=== PATIENT | female | born 1955 | race Caucasian/White ===

== ENCOUNTER → 2017-10-04 00:54 | Outpatient (CLI) | payer MEDICAID, SELFPAY ==
--- NOTE | 2017-10-04 11:37 | DI.RPTCT_ITS ---
SYMPTOM/DIAGNOSIS: OVARIAN CA, ? TREATMENT RESPONSE C56.9 CHEST, ABDOMEN AND PELVIS CT: 10/04 CT examination of the chest, abdomen and pelvis was performed with a bolus infusion of 100 cc Omnipaque 350 and ingestion of dilute Barium. The patient reportedly has a history of ovarian carcinoma. Note is made of an indwelling right subclavian catheter. There is an apparent lower cervical effusion. Left shoulder prosthesis noted. Lungs are clear. Tracheal bronchial tree appear intact. No pleural effusion seen. No mediastinal or hilar adenopathy. A couple nodes are noted just above the diaphragm in the epicardial fat on the left measuring about 1.5 cm in diameter and decreased in size in comparison with the previous examination of 12/27/16 at which time the largest node measured about 25 mm in greatest diameter. The previous examination showed marked abdominal ascites which has essentially resolved. Very prominent omental caking was also noted on the previous examination markedly reduced on the current study with no clear cut omental masses identified. No gross retroperitoneal or mesenteric adenopathy seen. No definite pelvic or inguinal adenopathy seen. No evidence of bowel obstruction or bowel wall mass. The liver and spleen are unremarkable in appearance except for central right hepatic lobe, low attenuation lesion probably representing small hematic hemangioma or cyst. Gallbladder and biliary ducts are CT normal. Pancreas is unremarkable. Abdominal aorta is of normal diameter and no major vascular abnormality seen. No significant abdominal wall hernia seen. No gross evidence of bony metastatic disease involving the regions surveyed on this CT of the chest, abdomen and pelvis. CONCLUSION: 1. Marked interval decrease in abdominal pelvic ascites and presumed omental caking from ovarian carcinoma with little if any visible omental abnormalities noted at this time. 2. Enlarged lymph node noted in epicardial fat, supradiaphragmatic on the left anteriorly have decreased in size in comparison with the previous examination, the largest decreasing in size from about 25 mm in diameter to 15 mm in diameter. 3. No evidence of new metastatic disease.
[2017-10-04] MEDS: Omnipaque 350 MG/ML 100 ML BTL IJ (11:48)
[2017-10-04] MEDS: Omnipaque 350 MG/ML 50 ML BTL PO (11:49)
[2017-10-04] MEDS: Breeza Beverage 473 ML BTL PO ×2 (11:49→11:50)
== END ==
PROVIDERS: PCP Family Medicine; Visit Provider Obstetrics & Gynecology Gynecologic Oncology
DX: C56.9 Malignant neoplasm of unspecified ovary (principal); R59.0 Localized enlarged lymph nodes
CPT/HCPCS: 74177; 71260; 82565; J3490; Q9967

== ENCOUNTER → 2017-10-20 11:38 | Outpatient (RCR) | payer MEDICAID, SELFPAY ==
[2017-10-04] MEDS: Normal Saline Flush 10 ML SYR IVP (08:15)
[2017-10-04] MEDS: Heparin 500 UNITS/5 ML SYRINGE IV (08:15)
[2017-10-04 09:12] LABS: CREATININE 1.16 mg/dL (0.55-1.02); Estimated GFR 47.34 (mL/min/1.73m2)
[2017-10-20] MEDS: Heparin 500 UNITS/5 ML SYRINGE IV (11:50)
[2017-10-20] MEDS: Normal Saline Flush 10 ML SYR IVP (11:50)
[2017-10-20 12:02] LABS: Absolute Basophil Count 0.09 k/cumm (0.0-0.2); Absolute Lymphocyte Count 0.75 k/cumm (1.2-3.4); Absolute Monocyte Count 0.47 k/cumm (0.11-0.7); Absolute Neutrophil Count 1.54 k/cumm (1.2-6.7); Basophils % 2.8; Eosinophils % 12.3; HCT 31.8 % (36.0-46.0); HGB 10.5 g/dL (12.0-15.5); Lymphocytes % 23.1; Mean Corpuscular Hemoglobin 31.2 pg (27.0-33.0); Mean Corpuscular Volume 94.4 fL (80-95); Mean Platelet Volume 8.2 fL (8.0-11.0); Monocytes % 14.5; Neutrophils % 47.3; Platelet Count 317 x1000/uL (130-400); RBC 3.37 m/cumm (4.00-5.20); RBC Distribution Width 16.8 % (11.7-14.6); White Blood Cell Count 3.25 k/cumm (4.4-10.8)
[2017-10-20 12:19] LABS: ALT 33 U/L (12-78); AST 26 U/L (15-37); Albumin 3.7 g/dL (3.4-5.0); Alkaline Phosphatase 115 U/L (46-116); Anion Gap 9.1 mmol/L (3-11); BUN 29 mg/dL (7-18); Bilirubin, Total 0.5 mg/dL (0.2-1.0); CO2 27.9 mmol/L (21.0-32.0); CREATININE 1.61 mg/dL (0.55-1.02); Calcium 9.3 mg/dL (8.5-10.1); Chloride 101 mmol/L (98-107); Estimated GFR 32.43 (mL/min/1.73m2); Glucose 137 mg/dL (70-100); Potassium 4.1 mmol/L (3.5-5.1); Sodium 138 mmol/L (136-145); Total Protein 7.6 g/dL (6.4-8.2)
== END ==
LOC: INF 10-04 01:50
PROVIDERS: Obstetrics & Gynecology Gynecologic Oncology; PCP Family Medicine; Visit Provider Internal Medicine Medical Oncology
DX: Z45.2 Encounter for adjustment and management of vascular access device (principal); C56.9 Malignant neoplasm of unspecified ovary; R59.0 Localized enlarged lymph nodes; E11.65 Type 2 diabetes mellitus with hyperglycemia
CPT/HCPCS: 36591; 80053; 82565; 85025

== ENCOUNTER 2017-11-14 01:37 | Outpatient (RCR) | payer MEDICAID, SELFPAY ==
[2017-10-27] MEDS: Heparin 500 UNITS/5 ML SYRINGE IV (09:55)
[2017-10-27] MEDS: Normal Saline Flush 10 ML SYR IVP (09:55)
[2017-10-27 10:26] LABS: Absolute Basophil Count 0.07 k/cumm (0.0-0.2); Absolute Eosinophil Count 0.38 k/cumm (0.0-0.7); Absolute Lymphocyte Count 0.81 k/cumm (1.2-3.4); Absolute Monocyte Count 0.39 k/cumm (0.11-0.7); Absolute Neutrophil Count 2.28 k/cumm (1.2-6.7); Basophils % 1.8; Eosinophils % 9.7; HCT 30.4 % (36.0-46.0); HGB 9.9 g/dL (12.0-15.5); Lymphocytes % 20.6; Mean Corp. HGB Concentration 32.6 g/dL (32.0-36.0); Mean Corpuscular Hemoglobin 31.3 pg (27.0-33.0); Mean Corpuscular Volume 96.2 fL (80-95); Mean Platelet Volume 8.6 fL (8.0-11.0); Monocytes % 9.9; Platelet Count 244 x1000/uL (130-400); RBC 3.16 m/cumm (4.00-5.20); RBC Distribution Width 16.1 % (11.7-14.6); White Blood Cell Count 3.93 k/cumm (4.4-10.8)
[2017-10-27 10:48] LABS: ALT 37 U/L (12-78); AST 29 U/L (15-37); Albumin 3.6 g/dL (3.4-5.0); Alkaline Phosphatase 126 U/L (46-116); Anion Gap 8.3 mmol/L (3-11); BUN 31 mg/dL (7-18); Bilirubin, Total 0.4 mg/dL (0.2-1.0); CO2 27.7 mmol/L (21.0-32.0); CREATININE 1.56 mg/dL (0.55-1.02); Calcium 9.3 mg/dL (8.5-10.1); Chloride 101 mmol/L (98-107); Estimated GFR 33.63 (mL/min/1.73m2); Glucose 144 mg/dL (70-100); Potassium 4.1 mmol/L (3.5-5.1); Sodium 137 mmol/L (136-145); Total Protein 7.8 g/dL (6.4-8.2)
[2017-11-07] MEDS: Normal Saline Flush 10 ML SYR IVP (10:35)
[2017-11-07] MEDS: Heparin 500 UNITS/5 ML SYRINGE IV (10:35)
[2017-11-07 10:51] LABS: Abs Immature Grans 0.01 k/cumm (0.0-0.09); Absolute Basophil Count 0.05 k/cumm (0.0-0.2); Absolute Lymphocyte Count 0.75 k/cumm (1.2-3.4); Absolute Monocyte Count 0.42 k/cumm (0.11-0.7); Absolute Neutrophil Count 1.85 k/cumm (1.2-6.7); Basophils % 1.5; Eosinophils % 8.9; HCT 31.3 % (36.0-46.0); HGB 10.7 g/dL (12.0-15.5); Immature Grans % 0.3; Lymphocytes % 22.2; Mean Corp. HGB Concentration 34.2 g/dL (32.0-36.0); Mean Corpuscular Volume 96.6 fL (80-95); Mean Platelet Volume 8.8 fL (8.0-11.0); Monocytes % 12.4; Neutrophils % 54.7; Platelet Count 188 x1000/uL (130-400); RBC 3.24 m/cumm (4.00-5.20); RBC Distribution Width 15.4 % (11.7-14.6); White Blood Cell Count 3.38 k/cumm (4.4-10.8)
[2017-11-07 11:15] LABS: ALT 32 U/L (12-78); AST 26 U/L (15-37); Albumin 3.9 g/dL (3.4-5.0); Alkaline Phosphatase 128 U/L (46-116); Anion Gap 11.1 mmol/L (3-11); BUN 27 mg/dL (7-18); Bilirubin, Total 0.3 mg/dL (0.2-1.0); CO2 26.9 mmol/L (21.0-32.0); CREATININE 1.56 mg/dL (0.55-1.02); Calcium 9.2 mg/dL (8.5-10.1); Chloride 101 mmol/L (98-107); Estimated GFR 33.63 (mL/min/1.73m2); Glucose 144 mg/dL (70-100); Potassium 4.6 mmol/L (3.5-5.1); Sodium 139 mmol/L (136-145)
[2017-11-08 10:08] LABS: CA 125 10 U/mL (0-30)
[2017-11-14] MEDS: Normal Saline Flush 10 ML SYR IVP (10:15)
[2017-11-14] MEDS: Heparin 500 UNITS/5 ML SYRINGE IV (10:15)
[2017-11-14 10:44] LABS: Absolute Basophil Count 0.07 k/cumm (0.0-0.2); Absolute Eosinophil Count 0.28 k/cumm (0.0-0.7); Absolute Monocyte Count 0.51 k/cumm (0.11-0.7); Absolute Neutrophil Count 1.73 k/cumm (1.2-6.7); Basophils % 2.1; Eosinophils % 8.3; HCT 31.6 % (36.0-46.0); HGB 10.8 g/dL (12.0-15.5); Lymphocytes % 23.6; Mean Corp. HGB Concentration 34.2 g/dL (32.0-36.0); Mean Corpuscular Hemoglobin 33.4 pg (27.0-33.0); Mean Corpuscular Volume 97.8 fL (80-95); Mean Platelet Volume 8.3 fL (8.0-11.0); Platelet Count 219 x1000/uL (130-400); RBC 3.23 m/cumm (4.00-5.20); RBC Distribution Width 14.9 % (11.7-14.6); White Blood Cell Count 3.39 k/cumm (4.4-10.8)
[2017-11-14 11:51] LABS: Hemoglobin A1C 6.5 % (4.5-6.2)
== END 2017-11-19 23:59 | disposition home or self-care (01) ==
LOC: INF 01:37
PROVIDERS: Obstetrics & Gynecology Gynecologic Oncology; PCP Family Medicine; Visit Provider Internal Medicine Medical Oncology
DX: C56.9 Malignant neoplasm of unspecified ovary (principal); E11.65 Type 2 diabetes mellitus with hyperglycemia; Z45.2 Encounter for adjustment and management of vascular access device
CPT/HCPCS: 36591; 80053; 86304; 83036; 85025

== ENCOUNTER 2017-12-19 14:30 | Outpatient (RCR) | payer MEDICAID, SELFPAY ==
[2017-12-19] MEDS: Normal Saline Flush 10 ML SYR IVP (14:40)
[2017-12-19] MEDS: Heparin 500 UNITS/5 ML SYRINGE IV (14:50)
[2017-12-19 14:57] LABS: Absolute Basophil Count 0.08 k/cumm (0.0-0.2); Absolute Eosinophil Count 0.11 k/cumm (0.0-0.7); Absolute Lymphocyte Count 1.14 k/cumm (1.2-3.4); Absolute Monocyte Count 0.31 k/cumm (0.11-0.7); Absolute Neutrophil Count 1.21 k/cumm (1.2-6.7); Basophils % 2.8; Eosinophils % 3.9; HCT 25.2 % (36.0-46.0); HGB 8.5 g/dL (12.0-15.5); Mean Corp. HGB Concentration 33.7 g/dL (32.0-36.0); Mean Corpuscular Hemoglobin 32.7 pg (27.0-33.0); Mean Corpuscular Volume 96.9 fL (80-95); Mean Platelet Volume 9.7 fL (8.0-11.0); Monocytes % 10.9; Neutrophils % 42.4; Platelet Count 103 x1000/uL (130-400); RBC Distribution Width 13.6 % (11.7-14.6); White Blood Cell Count 2.85 k/cumm (4.4-10.8)
[2017-12-19 15:06] LABS: Diff Comment Diff Reviewed; Polychromasia Present
== END 2017-12-20 23:59 | disposition home or self-care (01) ==
LOC: INF 14:30
PROVIDERS: PCP Family Medicine; Visit Provider Obstetrics & Gynecology Gynecologic Oncology
DX: C56.9 Malignant neoplasm of unspecified ovary (principal); Z45.2 Encounter for adjustment and management of vascular access device
CPT/HCPCS: 36591; 85025

== ENCOUNTER 2018-01-15 13:35 | Outpatient (RCR) | payer MEDICAID, SELFPAY ==
[2017-12-26] MEDS: Normal Saline Flush 10 ML SYR IVP (12:20)
[2017-12-26] MEDS: Heparin 500 UNITS/5 ML SYRINGE IV (12:20)
[2017-12-26 12:56] LABS: Absolute Basophil Count 0.04 k/cumm (0.0-0.2); Absolute Eosinophil Count 0.24 k/cumm (0.0-0.7); Absolute Lymphocyte Count 0.78 k/cumm (1.2-3.4); Absolute Monocyte Count 0.43 k/cumm (0.11-0.7); Absolute Neutrophil Count 1.09 k/cumm (1.2-6.7); Basophils % 1.6; Eosinophils % 9.3; HCT 22.7 % (36.0-46.0); HGB 7.8 g/dL (12.0-15.5); Lymphocytes % 30.2; Mean Corp. HGB Concentration 34.4 g/dL (32.0-36.0); Mean Corpuscular Volume 101.8 fL (80-95); Mean Platelet Volume 8.7 fL (8.0-11.0); Monocytes % 16.7; RBC 2.23 m/cumm (4.00-5.20); RBC Distribution Width 15.7 % (11.7-14.6); White Blood Cell Count 2.58 k/cumm (4.4-10.8)
[2017-12-26 13:15] LABS: Anisocytosis 1+; Basophilic Stippling Present; Diff Comment Agrees w/ Instrument; Platelet Count 260 x1000/uL (130-400); Polychromasia Present
[2017-12-26 13:16] LABS: Howell-Jolly Bodies Present; Neutrophils % 42.2
[2018-01-04] MEDS: Heparin 500 UNITS/5 ML SYRINGE IV (12:10)
[2018-01-04] MEDS: Normal Saline Flush 10 ML SYR IVP (12:10)
[2018-01-04 12:24] LABS: Abs Immature Grans 0.01 k/cumm (0.0-0.09); Absolute Basophil Count 0.07 k/cumm (0.0-0.2); Absolute Eosinophil Count 0.18 k/cumm (0.0-0.7); Absolute Lymphocyte Count 0.95 k/cumm (1.2-3.4); Absolute Neutrophil Count 1.54 k/cumm (1.2-6.7); Basophils % 2.2; Eosinophils % 5.5; HCT 29.8 % (36.0-46.0); Immature Grans % 0.3; Lymphocytes % 29.2; Mean Corp. HGB Concentration 33.6 g/dL (32.0-36.0); Mean Corpuscular Volume 101.4 fL (80-95); Mean Platelet Volume 8.5 fL (8.0-11.0); Monocytes % 15.4; Neutrophils % 47.4; Platelet Count 232 x1000/uL (130-400); RBC 2.94 m/cumm (4.00-5.20); RBC Distribution Width 18.8 % (11.7-14.6); White Blood Cell Count 3.25 k/cumm (4.4-10.8)
[2018-01-09] MEDS: Normal Saline Flush 10 ML SYR IVP (12:20)
[2018-01-09] MEDS: Heparin 500 UNITS/5 ML SYRINGE IV (12:21)
[2018-01-09 12:33] LABS: Absolute Basophil Count 0.05 k/cumm (0.0-0.2); Absolute Eosinophil Count 0.18 k/cumm (0.0-0.7); Absolute Lymphocyte Count 0.97 k/cumm (1.2-3.4); Absolute Neutrophil Count 1.92 k/cumm (1.2-6.7); Basophils % 1.3; Eosinophils % 4.8; HCT 31.8 % (36.0-46.0); HGB 10.8 g/dL (12.0-15.5); Lymphocytes % 26.1; Mean Corpuscular Hemoglobin 34.7 pg (27.0-33.0); Mean Corpuscular Volume 102.3 fL (80-95); Mean Platelet Volume 8.5 fL (8.0-11.0); Monocytes % 16.1; Neutrophils % 51.7; Platelet Count 265 x1000/uL (130-400); RBC 3.11 m/cumm (4.00-5.20); RBC Distribution Width 18.3 % (11.7-14.6); White Blood Cell Count 3.72 k/cumm (4.4-10.8)
[2018-01-15] MEDS: Heparin 500 UNITS/5 ML SYRINGE IV (15:05)
[2018-01-15] MEDS: Normal Saline Flush 10 ML SYR IVP (15:05)
[2018-01-15 15:46] LABS: Absolute Basophil Count 0.05 k/cumm (0.0-0.2); Absolute Eosinophil Count 0.27 k/cumm (0.0-0.7); Absolute Monocyte Count 0.61 k/cumm (0.11-0.7); Absolute Neutrophil Count 1.79 k/cumm (1.2-6.7); Basophils % 1.3; Eosinophils % 7.1; HCT 33.1 % (36.0-46.0); HGB 11.1 g/dL (12.0-15.5); Lymphocytes % 28.8; Mean Corp. HGB Concentration 33.5 g/dL (32.0-36.0); Mean Corpuscular Hemoglobin 34.4 pg (27.0-33.0); Mean Corpuscular Volume 102.5 fL (80-95); Mean Platelet Volume 8.7 fL (8.0-11.0); Neutrophils % 46.8; Platelet Count 366 x1000/uL (130-400); RBC 3.23 m/cumm (4.00-5.20); RBC Distribution Width 17.3 % (11.7-14.6); White Blood Cell Count 3.82 k/cumm (4.4-10.8)
== END 2018-01-19 23:59 | disposition home or self-care (01) ==
LOC: INF 13:35
PROVIDERS: PCP Family Medicine; Visit Provider Obstetrics & Gynecology Gynecologic Oncology
DX: C56.9 Malignant neoplasm of unspecified ovary (principal); Z45.2 Encounter for adjustment and management of vascular access device
CPT/HCPCS: 36591; 85025

== ENCOUNTER 2018-02-19 01:20 | Outpatient (RCR) | payer MEDICAID, SELFPAY ==
[2018-01-29] MEDS: Heparin 500 UNITS/5 ML SYRINGE IV (09:05)
[2018-01-29] MEDS: Normal Saline Flush 10 ML SYR IVP (09:05)
[2018-01-29 09:50] LABS: Abs Immature Grans 0.01 k/cumm (0.0-0.09); Absolute Basophil Count 0.06 k/cumm (0.0-0.2); Absolute Lymphocyte Count 1.13 k/cumm (1.2-3.4); Absolute Monocyte Count 0.56 k/cumm (0.11-0.7); Basophils % 1.4; Eosinophils % 6.9; HCT 32.3 % (36.0-46.0); HGB 10.8 g/dL (12.0-15.5); Immature Grans % 0.2; Lymphocytes % 25.9; Mean Corp. HGB Concentration 33.4 g/dL (32.0-36.0); Mean Corpuscular Hemoglobin 34.6 pg (27.0-33.0); Mean Corpuscular Volume 103.5 fL (80-95); Mean Platelet Volume 8.8 fL (8.0-11.0); Monocytes % 12.8; Neutrophils % 52.8; Platelet Count 231 x1000/uL (130-400); RBC 3.12 m/cumm (4.00-5.20); White Blood Cell Count 4.36 k/cumm (4.4-10.8)
[2018-01-29 10:01] LABS: ALT 30 U/L (12-78); AST 23 U/L (15-37); Albumin 3.9 g/dL (3.4-5.0); Alkaline Phosphatase 83 U/L (46-116); Anion Gap 10.6 mmol/L (3-11); BUN 39 mg/dL (7-18); Bilirubin, Total 0.5 mg/dL (0.2-1.0); CO2 28.4 mmol/L (21.0-32.0); CREATININE 1.51 mg/dL (0.55-1.02); Calcium 9.7 mg/dL (8.5-10.1); Chloride 100 mmol/L (98-107); Estimated GFR 34.92 (mL/min/1.73m2); Glucose 158 mg/dL (70-100); Potassium 4.4 mmol/L (3.5-5.1); Sodium 139 mmol/L (136-145); Total Protein 7.6 g/dL (6.4-8.2)
[2018-02-05] MEDS: Heparin 500 UNITS/5 ML SYRINGE IV (12:10)
[2018-02-05] MEDS: Normal Saline Flush 10 ML SYR IVP (12:10)
[2018-02-05 12:36] LABS: Abs Immature Grans 0.01 k/cumm (0.0-0.09); Absolute Basophil Count 0.03 k/cumm (0.0-0.2); Absolute Eosinophil Count 0.39 k/cumm (0.0-0.7); Absolute Lymphocyte Count 1.09 k/cumm (1.2-3.4); Basophils % 0.6; Eosinophils % 8.1; HCT 31.2 % (36.0-46.0); HGB 10.6 g/dL (12.0-15.5); Immature Grans % 0.2; Lymphocytes % 22.6; Mean Platelet Volume 8.6 fL (8.0-11.0); Monocytes % 12.4; Neutrophils % 56.1; Platelet Count 253 x1000/uL (130-400); RBC 3.03 m/cumm (4.00-5.20); RBC Distribution Width 15.2 % (11.7-14.6); White Blood Cell Count 4.82 k/cumm (4.4-10.8)
[2018-02-05 12:52] LABS: ALT 30 U/L (12-78); AST 21 U/L (15-37); Alkaline Phosphatase 75 U/L (46-116); Anion Gap 11.9 mmol/L (3-11); BUN 42 mg/dL (7-18); Bilirubin, Total 0.5 mg/dL (0.2-1.0); CO2 27.1 mmol/L (21.0-32.0); CREATININE 1.49 mg/dL (0.55-1.02); Calcium 9.9 mg/dL (8.5-10.1); Chloride 98 mmol/L (98-107); Estimated GFR 35.46 (mL/min/1.73m2); Glucose 166 mg/dL (70-100); Potassium 4.4 mmol/L (3.5-5.1); Sodium 137 mmol/L (136-145); Total Protein 7.7 g/dL (6.4-8.2)
[2018-02-12] MEDS: Heparin 500 UNITS/5 ML SYRINGE IV (13:30)
[2018-02-12] MEDS: Normal Saline Flush 10 ML SYR IVP (13:30)
[2018-02-12 13:33] LABS: Absolute Basophil Count 0.05 k/cumm (0.0-0.2); Absolute Eosinophil Count 0.27 k/cumm (0.0-0.7); Absolute Lymphocyte Count 0.97 k/cumm (1.2-3.4); Absolute Monocyte Count 0.49 k/cumm (0.11-0.7); Absolute Neutrophil Count 2.03 k/cumm (1.2-6.7); Basophils % 1.3; Eosinophils % 7.1; HCT 31.5 % (36.0-46.0); HGB 10.7 g/dL (12.0-15.5); Lymphocytes % 25.5; Mean Corpuscular Hemoglobin 35.1 pg (27.0-33.0); Mean Corpuscular Volume 103.3 fL (80-95); Mean Platelet Volume 8.4 fL (8.0-11.0); Monocytes % 12.9; Neutrophils % 53.2; Platelet Count 302 x1000/uL (130-400); RBC 3.05 m/cumm (4.00-5.20); RBC Distribution Width 14.3 % (11.7-14.6); White Blood Cell Count 3.81 k/cumm (4.4-10.8)
[2018-02-12 13:52] LABS: ALT 30 U/L (12-78); AST 24 U/L (15-37); Albumin 3.9 g/dL (3.4-5.0); Alkaline Phosphatase 78 U/L (46-116); Anion Gap 9.5 mmol/L (3-11); BUN 30 mg/dL (7-18); Bilirubin, Total 0.5 mg/dL (0.2-1.0); CO2 29.5 mmol/L (21.0-32.0); CREATININE 1.77 mg/dL (0.55-1.02); Calcium 9.8 mg/dL (8.5-10.1); Chloride 100 mmol/L (98-107); Estimated GFR 29.07 (mL/min/1.73m2); Glucose 182 mg/dL (70-100); Potassium 4.8 mmol/L (3.5-5.1); Sodium 139 mmol/L (136-145); Total Protein 7.8 g/dL (6.4-8.2)
[2018-02-19] MEDS: Normal Saline Flush 10 ML SYR IVP (12:30)
[2018-02-19 12:49] LABS: Abs Immature Grans 0.01 k/cumm (0.0-0.09); Absolute Basophil Count 0.05 k/cumm (0.0-0.2); Absolute Eosinophil Count 0.18 k/cumm (0.0-0.7); Absolute Lymphocyte Count 0.84 k/cumm (1.2-3.4); Absolute Monocyte Count 0.59 k/cumm (0.11-0.7); Absolute Neutrophil Count 2.71 k/cumm (1.2-6.7); Basophils % 1.1; Eosinophils % 4.1; HCT 33.4 % (36.0-46.0); HGB 11.4 g/dL (12.0-15.5); Immature Grans % 0.2; Lymphocytes % 19.2; Mean Corp. HGB Concentration 34.1 g/dL (32.0-36.0); Mean Corpuscular Hemoglobin 35.4 pg (27.0-33.0); Mean Corpuscular Volume 103.7 fL (80-95); Mean Platelet Volume 8.4 fL (8.0-11.0); Monocytes % 13.5; Neutrophils % 61.9; Platelet Count 307 x1000/uL (130-400); RBC 3.22 m/cumm (4.00-5.20); RBC Distribution Width 13.8 % (11.7-14.6); White Blood Cell Count 4.38 k/cumm (4.4-10.8)
[2018-02-19 13:08] LABS: ALT 38 U/L (12-78); AST 26 U/L (15-37); Albumin 4.1 g/dL (3.4-5.0); Alkaline Phosphatase 84 U/L (46-116); Anion Gap 9.8 mmol/L (3-11); BUN 32 mg/dL (7-18); Bilirubin, Total 0.5 mg/dL (0.2-1.0); CO2 31.2 mmol/L (21.0-32.0); CREATININE 1.69 mg/dL (0.55-1.02); Calcium 10.2 mg/dL (8.5-10.1); Chloride 97 mmol/L (98-107); Estimated GFR 30.66 (mL/min/1.73m2); Glucose 154 mg/dL (70-100); Potassium 4.1 mmol/L (3.5-5.1); Sodium 138 mmol/L (136-145); Total Protein 8.2 g/dL (6.4-8.2)
== END 2018-02-19 23:59 | disposition home or self-care (01) ==
LOC: INF 01:20
PROVIDERS: PCP Family Medicine; Visit Provider Obstetrics & Gynecology Gynecologic Oncology
DX: C56.9 Malignant neoplasm of unspecified ovary (principal); Z45.2 Encounter for adjustment and management of vascular access device
CPT/HCPCS: 36591; 80053; 85025

== ENCOUNTER 2018-03-13 02:07 | Outpatient (RCR) | payer MEDICAID, SELFPAY ==
[2018-03-05] MEDS: Normal Saline Flush 10 ML SYR IVP (15:25)
[2018-03-05] MEDS: Heparin 500 UNITS/5 ML SYRINGE IV (15:26)
[2018-03-05 15:40] LABS: Absolute Basophil Count 0.03 k/cumm (0.0-0.2); Absolute Eosinophil Count 0.19 k/cumm (0.0-0.7); Absolute Lymphocyte Count 1.19 k/cumm (1.2-3.4); Absolute Monocyte Count 0.46 k/cumm (0.11-0.7); Absolute Neutrophil Count 2.15 k/cumm (1.2-6.7); Basophils % 0.7; Eosinophils % 4.7; HCT 32.1 % (36.0-46.0); HGB 11.1 g/dL (12.0-15.5); Lymphocytes % 29.6; Mean Corp. HGB Concentration 34.6 g/dL (32.0-36.0); Mean Corpuscular Hemoglobin 35.8 pg (27.0-33.0); Mean Corpuscular Volume 103.5 fL (80-95); Mean Platelet Volume 8.9 fL (8.0-11.0); Monocytes % 11.4; Neutrophils % 53.6; RBC Distribution Width 13.5 % (11.7-14.6); White Blood Cell Count 4.02 k/cumm (4.4-10.8)
[2018-03-05 16:02] LABS: Platelet Count 209 x1000/uL (130-400)
[2018-03-05 16:19] LABS: ALT 31 U/L (12-78); AST 25 U/L (15-37); Albumin 3.9 g/dL (3.4-5.0); Alkaline Phosphatase 93 U/L (46-116); Anion Gap 8.3 mmol/L (3-11); BUN 30 mg/dL (7-18); Bilirubin, Total 0.3 mg/dL (0.2-1.0); CO2 28.7 mmol/L (21.0-32.0); CREATININE 1.92 mg/dL (0.55-1.02); Calcium 9.5 mg/dL (8.5-10.1); Chloride 96 mmol/L (98-107); Estimated GFR 26.46 (mL/min/1.73m2); Glucose 186 mg/dL (70-100); Sodium 133 mmol/L (136-145); Total Protein 7.9 g/dL (6.4-8.2)
[2018-03-13] MEDS: Heparin 500 UNITS/5 ML SYRINGE IV (14:21)
[2018-03-13] MEDS: Normal Saline Flush 10 ML SYR IVP (14:21)
[2018-03-13 14:34] LABS: ALT 29 U/L (12-78); AST 25 U/L (15-37); Absolute Basophil Count 0.03 k/cumm (0.0-0.2); Absolute Eosinophil Count 0.17 k/cumm (0.0-0.7); Absolute Lymphocyte Count 1.09 k/cumm (1.2-3.4); Absolute Monocyte Count 0.32 k/cumm (0.11-0.7); Absolute Neutrophil Count 1.58 k/cumm (1.2-6.7); Alkaline Phosphatase 85 U/L (46-116); Anion Gap 9.2 mmol/L (3-11); BUN 34 mg/dL (7-18); Basophils % 0.9; Bilirubin, Total 0.3 mg/dL (0.2-1.0); CO2 28.8 mmol/L (21.0-32.0); CREATININE 2.22 mg/dL (0.55-1.02); Calcium 9.7 mg/dL (8.5-10.1); Chloride 98 mmol/L (98-107); Eosinophils % 5.3; Estimated GFR 22.38 (mL/min/1.73m2); Glucose 156 mg/dL (70-100); HCT 30.9 % (36.0-46.0); HGB 10.6 g/dL (12.0-15.5); Lymphocytes % 34.2; Mean Corp. HGB Concentration 34.3 g/dL (32.0-36.0); Mean Corpuscular Hemoglobin 34.8 pg (27.0-33.0); Mean Corpuscular Volume 101.3 fL (80-95); Mean Platelet Volume 9.1 fL (8.0-11.0); Neutrophils % 49.6; Platelet Count 117 x1000/uL (130-400); Potassium 4.5 mmol/L (3.5-5.1); RBC 3.05 m/cumm (4.00-5.20); Sodium 136 mmol/L (136-145); Total Protein 7.7 g/dL (6.4-8.2); White Blood Cell Count 3.19 k/cumm (4.4-10.8)
== END 2018-03-22 23:59 | disposition home or self-care (01) ==
LOC: INF 02:07
PROVIDERS: PCP Family Medicine; Visit Provider Obstetrics & Gynecology Gynecologic Oncology
DX: C56.9 Malignant neoplasm of unspecified ovary (principal); Z45.2 Encounter for adjustment and management of vascular access device
CPT/HCPCS: 36591; 80053; 85025

== ENCOUNTER 2018-04-16 00:35 | Outpatient (CLI) | payer MEDICAID, SELFPAY ==
--- NOTE | 2018-04-16 13:52 | DI.MRI_ITS ---
SYMPTOMS/DIAGNOSIS: VISUAL FIELD DEFECT, H53.40 MRI OF THE ORBITS: T2 sagittal and T1 axial sequences were performed of the entire brain. T1 axial and coronal and fat-suppressed T2 axial and coronal sequences were performed through the orbits. The usual gadolinium enhanced sequences could not be performed secondary to renal insufficiency. The globes, optic nerves and extraocular muscles appear symmetric. No abnormality is seen in the intraconal fat. The visualized portions of the brain are unremarkable. There is no evidence of a pituitary mass or pituitary enlargement. The vascular flow voids appear intact. The ventricles are normal in size. The sinuses and mastoid air cells appear clear. IMPRESSION: Limited exam. No orbital abnormality is seen.
== END 2018-04-16 00:55 ==
PROVIDERS: PCP Family Medicine; Visit Provider Family Medicine
DX: H53.40 Unspecified visual field defects (principal)
CPT/HCPCS: 70540; 70551

== ENCOUNTER 2018-04-17 14:01 | Outpatient (REF) | payer MEDICAID, SELFPAY ==
[2018-04-17 14:43] LABS: Hemoglobin A1C 9.7 % (4.5-6.2)
[2018-04-17 14:49] LABS: ALT 25 U/L (12-78); AST 23 U/L (15-37); Albumin 4.3 g/dL (3.4-5.0); Alkaline Phosphatase 89 U/L (46-116); Anion Gap 12.4 mmol/L (3-11); BUN 27 mg/dL (7-18); Bilirubin, Total 0.4 mg/dL (0.2-1.0); CO2 25.6 mmol/L (21.0-32.0); CREATININE 1.75 mg/dL (0.55-1.02); Calcium 9.7 mg/dL (8.5-10.1); Chloride 97 mmol/L (98-107); Estimated GFR 29.45 (mL/min/1.73m2); Glucose 128 mg/dL (70-100); Potassium 4.1 mmol/L (3.5-5.1); Sodium 135 mmol/L (136-145); TSH (W/Ref FT4) 5.07 uIU/mL (0.358-3.74); Total Protein 8.2 g/dL (6.4-8.2)
[2018-04-17 15:11] LABS: FREE T4 1.04 ng/dL (0.76-1.46)
== END 2018-04-17 14:21 ==
LOC: LBN 14:01
PROVIDERS: PCP Family Medicine; Visit Provider Family Medicine
DX: E11.65 Type 2 diabetes mellitus with hyperglycemia (principal); R06.02 Shortness of breath; N28.9 Disorder of kidney and ureter, unspecified; G47.30 Sleep apnea, unspecified; R41.3 Other amnesia
CPT/HCPCS: 80053; 83036; 84439; 84443

== ENCOUNTER 2018-04-17 14:12 | Outpatient (RCR) | payer MEDICAID, SELFPAY | END 2018-04-19 23:59 | disposition home or self-care (01) | LOC: INF 14:12 | PROVIDERS: PCP Family Medicine; Visit Provider Obstetrics & Gynecology Gynecologic Oncology | DX: E11.65 Type 2 diabetes mellitus with hyperglycemia (principal); Z45.2 Encounter for adjustment and management of vascular access device | CPT/HCPCS: 36591 ==

== ENCOUNTER 2018-04-25 11:12 | Emergency (ER) | payer MEDICAID, SELFPAY ==
[2018-04-25] VITALS (46 sets, daily range): BP systolic 111–241; BP diastolic 53–198; PULSE 88–124; RESP 11–31; TEMP 36.8–37.3; O2SAT 96–100
--- NOTE | 2018-04-25 11:17 | ED.GENADUL_ITS ---
Discharge Plan Disposition Patient Disposition: HOME Condition: Stable Discharge Details Chief Complaint: SOB Clinical Impression: Anemia, SOB (shortness of breath), Thrombocytopenia Primary Care Provider: Angeli Paez ED Provider: Kirsty Kraus Home Meds and New Rx's Prescriptions: Continued omeprazole 20 mg capsule,delayed release(DR/EC) 20 mg PO DAILY Qty: 90 RF: 12 lancets 28 gauge misc 1 ea Miscellaneous TID Qty: 400 RF: 4 glucosamine-chondroitin 256-369-30-5 mg tablet 1 tab PO BID Qty: 180 RF: 12 duloxetine 60 mg capsule,delayed release(DR/EC) 60 mg PO DAILY Qty: 90 RF: 12 Blood Glucose Test strip 1 ea Miscellaneous TID Qty: 400 RF: 12 furosemide 20 mg tablet 20 mg PO BID RF: 0 acetaminophen [Tylenol Extra Strength] 500 mg tablet 1,000 mg PO TID PRNRF: 0 sennosides [Senokot] 8.6 mg tablet 8.6 mg PO BID PRNRF: 0 polyethylene glycol 3350 [Miralax] 17 gram/dose powder 17 gm PO DAILY PRNRF: 0 latanoprost 2.5 ML drops 1 drp Ophthalmic DAILY RF: 0 BD Autoshield Pen Needle 1 EACH needle 1 ndl Sub-Q DAILY Qty: 400 RF: 12 pen needle, diabetic [BD Ultra-Fine Orig Pen Needle] 1 EACH needle 1 ea Miscellaneous 4 times daily Qty: 360 RF: 12 Lantus Solostar U-100 Insulin 100 UNIT/1 ML insulin pen 15 unit SQ DAILY Qty: 2 RF: 12 amoxicillin 500 MG capsule 4 tab PO DIR Qty: 4 RF: 12 multivitamin 1 EACH capsule 1 ea PO DAILY Qty: 90 RF: 12 BD AutoShield Duo Pen Needle 1 EACH needle 1 ea Miscellaneous QID Qty: 400 RF: 12 loratadine 10 mg tablet 10 mg PO DAILY Qty: 90 RF: 12 spironolactone 25 mg tablet 25 mg PO BID Qty: 180 RF: 12 losartan [Cozaar] 50 mg Tablet 50 mg PO DAILY RF: 0 Discharge Instructions Instructions: Dyspnea (ED), Anemia (ED), Blood Transfusion (GEN) Additional Instructions: Please return immediately to the emergency department if you develop any new or worsening symptoms or if you become otherwise concerned. It is extremely important that you call tomorrow to make an appointment to be seen in follow-up as soon as possible by both her primary care doctor and also by her oncologist. Please do not take your oral chemotherapy medication until you have spoken with your oncologist tomorrow. Referrals: Angeli Paez MD, [place] [Primary Care Provider] - Discharge Data Discharge Date/Time-TO BE ENTERED AT DEPARTURE: 04/25/18 22:20 Medical Decision Making Jess Krishnamurthy is a 62 y/o woman with h/o ovarian cancer currently on p.o. chemotherapy who presented to the emergency department with 3 weeks of shortness of breath. On exam patient is well and nontoxic appearing with normal work of breathing and clear lungs while at rest. Somewhat dry mucous membranes. She did have some mild tachypnea when transferring to the bed that resolved rapidly with rest. Otherwise unremarkable exam. Concern for anemia versus PE versus pneumonia versus influenza versus less likely CHF, ACS. Exam/history is not consistent with acute aortic pathology, sepsis, other acute emergent life- threatening process. Plan for EKG, chest x-ray, screening labs, telemetry, IV, judicious IV fluid. Will monitor and reassess. Chest x-ray personally visualized and interpreted by me in conjunction with radiology: CHEST: Frontal and lateral views. Comparison CT scan is 12/27/16. The heart size and pulmonary vasculature are within normal limits. The lungs are free of infiltrates, effusions or pneumothoraces. There is an indwelling central venous catheter. The tip of the catheter is in good position in the superior vena cava. Note is made of a reversed left shoulder replacement. Marked degenerative changes are seen in the right shoulder. Degenerative changes are seen in the spine. IMPRESSION: No acute pulmonary process. EKG interpreted by me, shows sinus rhythm at 92, normal axis, no acute ischemic changes Labs show hemoglobin 6.4, d-dimer 833, elevated anion gap, creatinine 1.9, negative troponin. Doubt PE as etiology of shortness of breath given significant anemia, with most recent hemoglobin /20-10.6. Suspect chemotherapy induced. Plan for transfuse 1 unit PRBCs. Given elevated d-dimer, will obtain echo as patient cannot undergo CT secondary to creatinine and very low suspicion may make an indeterminant V/Q read difficult to interpret. Echo shows no right heart strain: Summary: 1. Left ventricle: The cavity size was normal. Wall thickness was normal. Systolic function was hyperdynamic. The estimated ejection fraction was 65-70%. Wall motion was normal; there were no regional wall motion abnormalities. 2. Right ventricle: The cavity size was normal. Wall thickness was normal. Systolic function was normal. 3. Pulmonary arteries: The tricuspid jet envelope definition was inadequate for estimation of RV systolic pressure. There were no indirect findings to suggest moderate or severe pulmonary hypertension. I did discuss patient presentation results with Dr. Al Lopez, her oncologist at [facility]. He recommends transfuse 1 unit, he will follow patient as outpatient, hold PO chemo at home for now, no further recommendations at this time. He does note that he doubts PE is etiology as patient did have a CT of the chest in March that was negative. as patient needs irradiated blood, blood will have to be ordered from outside facility. I discussed the risks and benefits of blood transfusion with the patient, who verbalized understanding of the risks and provided written consent to have blood transfusion. I also had a lengthy discussion with the patient prior to her discharge regarding return to emergency department cautions, stopping chemo the rapy agent for now, home care, and importance of outpatient follow-up with her PCP and her oncologist assuming no changes in plan after blood transfusion completed. Patient verbalized understanding of the plan and was amenable. All questions were answered. Medical Records Medical records reviewed: Yes I reviewed the patient's medical records. HPI General Mode of arrival: ambulatory . Date/Time Provider Initiated Documentation: 04/25/18 11:16 . Limitations to Documentation: no limitations . Information obtained by: patient, family, RN notes reviewed and old records reviewed . HPI Narrative: Jess Krishnamurthy is a-year-old woman with history of ovarian cancer on daily oral chemotherapy, hypertension, high cholesterol, GERD, obesity presents emergency department shortness of breath. Patient reports that she has been feeling increasingly short of breath with exertion over the past 3 weeks. When at rest, patient does begin to return to baseline, but reports shortness of breath after taking 6-8 steps. She denies having any pain. She does report that she has had productive cough over the past few weeks. Denies fevers. Patient reports that she transitioned off infusion chemotherapy approximately 1 month ago, and has been taking oral chemotherapy agents daily for the past few weeks. Patient reports that she has been drinking fluids well, but has had somewhat decreased appetite over the past few weeks. She denies orthopnea or PND. No fevers, no rash, no numbness, weakness, vomiting. She reports that she has had chronic diarrhea over the past year that is unchanged from baseline. Related Data Home Medications Medication Instructions Recorded Confirmed latanoprost 1 drp OPHTHALMIC DAILY drp 03/10/15 04/25/18 BD Autoshield Pen Needle #400 ndl 05/09/16 04/25/18 pen needle, diabetic [BD #360 07/04/16 04/25/18 Ultra-Fine Orig Pen Needle] Lantus Solostar U-100 Insulin 15 unit SQ DAILY #2 box 12/28/16 04/25/18 BD AutoShield Duo Pen Needle #400 ndl 05/18/17 04/25/18 amoxicillin 4 tab PO DIR #4 cap 05/18/17 04/25/18 multivitamin 1 ea PO DAILY #90 tab 05/18/17 04/25/18 loratadine 10 mg tablet 10 mg PO DAILY #90 tab 12/28/17 04/25/18 polyethylene glycol 3350 17 17 gm PO DAILY PRN gm 12/28/17 04/25/18 gram/dose oral powder sennosides 8.6 mg tablet 8.6 mg PO BID PRN 12/28/17 04/25/18 blood sugar diagnostic strips #400 strip 03/29/18 04/25/18 duloxetine 60 mg capsule,delayed 60 mg PO DAILY #90 tab 03/29/18 04/25/18 release glucosamine rios dipot-chond rios 1 tab PO BID #180 tab 03/29/18 04/25/18 sod-C-Mn 750 mg-600 mg-99 mg-5 mg tablet lancets 28 gauge #400 ea 03/29/18 04/25/18 omeprazole 20 mg capsule,delayed 20 mg PO DAILY #90 tab 03/29/18 04/25/18 release spironolactone 25 mg tablet 25 mg PO BID #180 tab-cap 04/02/18 04/25/18 acetaminophen 500 mg tablet 1,000 mg PO TID PRN tab 04/12/18 04/25/18 furosemide 20 mg tablet 20 mg PO BID tab-cap 04/12/18 04/25/18 losartan [Cozaar] 50 mg PO DAILY 04/25/18 04/25/18 Previous Rx's Medication Instructions Recorded Lantus Solostar U-100 Insulin 15 unit SQ DAILY #2 box 12/28/16 BD AutoShield Duo Pen Needle #400 ndl 05/18/17 amoxicillin 4 tab PO DIR #4 cap 05/18/17 multivitamin 1 ea PO DAILY #90 tab 05/18/17 blood sugar diagnostic strips #400 strip 03/29/18 duloxetine 60 mg capsule,delayed 60 mg PO DAILY #90 tab 03/29/18 release glucosamine rios dipot-chond rios 1 tab PO BID #180 tab 03/29/18 sod-C-Mn 750 mg-600 mg-99 mg-5 mg tablet lancets 28 gauge #400 ea 03/29/18 omeprazole 20 mg capsule,delayed 20 mg PO DAILY #90 tab 03/29/18 release spironolactone 25 mg tablet 25 mg PO BID #180 tab-cap 04/02/18 Allergies Allergy/AdvReac Type Severity Reaction Status Date / Time metformin AdvReac Intermediate diarrhea Verified 04/25/18 15:13 Review of Systems Review of Systems Constitutional: denies fevers Eyes: denies eye pain ENT: denies facial pain, dental pain, sore throat Cardiovascular: denies chest pain, edema Respiratory: denies cough, reports shortness of breath GI: denies abdominal pain, vomiting, diarrhea : denies flank pain MSK: denies back pain, neck pain, arthralgias, myalgias Skin: denies rash Neuro: denies headaches, numbness, weakness [facility] Medical History Weight loss of more than 10% body weight (Resolved 06/09/16) Urinary incontinence (Chronic 12/27/16) Type II diabetes mellitus, uncontrolled (Chronic 09/13/12) Spinal stenosis (Chronic) Sleep apnea (Chronic 11/18/13) Rotator cuff tear arthropathy of both shoulders (Chronic 06/01/16) Peritoneal carcinomatosis (Chronic 12/27/16) Memory impairment (Inactive 06/30/14) Malignant neoplasm of ovary (Chronic 02/06/17) Macular degeneration (Chronic 03/10/15) Hyperlipidemia (Chronic 09/18/12) Hemorrhoids (Resolved 08/02/16) Glaucoma of both eyes (Chronic 03/10/15) Generalized osteoarthrosis (Chronic) Depressive disorder (Chronic) Cervical disc disorder with myelopathy (Chronic) Anemia (Chronic 08/27/13) Abnormal ECG (Chronic 06/19/06) Benign hypertension (Chronic) Osteoarthritis of knee (Chronic 07/04/12) Obesity (Chronic) Depressive disorder Diabetes mellitus GERD (gastroesophageal reflux disease) Hypertension Obesity Spinal stenosis in cervical region Surgical History Arthroplasty of knee (~03/2005) Arthroscopy, Shoulder COLPOSCOPY (~1993) section (~1986) Colonoscopy - IV Sedation (08/02/16) Endometrial Biopsy (~1999) Hemorrhoidal Banding Hysterectomy NERVE SURGERY (~03/2007) Oophrectomy, Both Replacement of total knee joint Rotator Cuff Repair Surgery TENDON REPAIR (~1998) Total Hysterectomy Family History Mother Diabetes Essential hypertension Depression Heart disease Father Hyperlipidemia Neoplasm Sister No problems noted. Sister Diabetes Essential hypertension Vertigo Brother Depression Brother Substance abuse Alcohol abuse Depression Brother Neoplasm Grandfather No problems noted. Grandfather Alcohol abuse Neoplasm Grandmother Diabetes Heart disease Grandmother Neoplasm Son No problems noted. Social History Smoking/Tobacco Use Status: Never Second Hand Exposure: Yes ( A CHILD) Alcohol Intake: current Alcohol Intake frequency: a few times a month Drug use: Never Substance use type: does not use Household members: other Details: 2 Pets and animals: Yes Pets and animals: cat(s) What type of physical activity do you participate in: none Brenda/Congregational: Episcopalian Special brenda needs: No Do you feel safe in your relationship?: Yes Exam Narrative Exam Narrative: Constitutional: well and [id number], pleasant, conversing normally HENT: head atraumatic/normocephalic/normal inspection, mucous membranes somewhat dry Eyes: conjunctiva normal, sclera normal, pupils 3mm b/l Neck: no stridor, normal ROM, trachea midline Chest: normal inspection Resp: normal work of breathing while resting in bed, LCTAB Cardio: normal rate, normal rhythm, no murmur appreciated GI: abdomen soft, non-tender, non-distended Back: normal inspection, no rash Skin: warm, dry, normal color, no rash Neuro: alert, not altered, grossly non-focal, normal tone Ext: no edema, no posterior calf tenderness to palpation Psych: normal mood, normal affect, normal behavior
--- NOTE | 2018-04-25 11:20 | NUR.NOTE ---
pt has has SOB for approximately 3 weeks however it has progressively gotten worse over the past week
--- NOTE | 2018-04-25 11:29 | DI.RAD_ITS ---
SYMPTOMS/DIAGNOSIS: SHORTNESS OF BREATH CHEST: Frontal and lateral views. Comparison CT scan is 12/27/16. The heart size and pulmonary vasculature are within normal limits. The lungs are free of infiltrates, effusions or pneumothoraces. There is an indwelling central venous catheter. The tip of the catheter is in good position in the superior vena cava. Note is made of a reversed left shoulder replacement. Marked degenerative changes are seen in the right shoulder. Degenerative changes are seen in the spine. IMPRESSION: No acute pulmonary process.
[2018-04-25 12:03] LABS: Absolute Basophil Count 0.04 k/cumm (0.0-0.2); Absolute Eosinophil Count 0.12 k/cumm (0.0-0.7); Absolute Lymphocyte Count 0.93 k/cumm (1.2-3.4); Absolute Monocyte Count 0.31 k/cumm (0.11-0.7); Absolute Neutrophil Count 2.19 k/cumm (1.2-6.7); Basophils % 1.1; Eosinophils % 3.3; Lymphocytes % 25.9; Mean Corp. HGB Concentration 35.2 g/dL (32.0-36.0); Mean Corpuscular Hemoglobin 33.7 pg (27.0-33.0); Mean Corpuscular Volume 95.8 fL (80-95); Mean Platelet Volume 8.9 fL (8.0-11.0); Monocytes % 8.6; Neutrophils % 61.1; Platelet Count 103 x1000/uL (130-400); RBC Distribution Width 13.1 % (11.7-14.6); White Blood Cell Count 3.59 k/cumm (4.4-10.8)
[2018-04-25 12:15] LABS: HCT 18.2 % (36.0-46.0); HGB 6.4 g/dL (12.0-15.5)
[2018-04-25 12:19] LABS: Prothrombin Time 10.1 sec (9.3-11.0)
[2018-04-25 12:25] LABS: Diff Comment RBC Morph Reviewed; RBC Morphology Normal
[2018-04-25 12:27] LABS: ALT 25 U/L (12-78); AST 25 U/L (15-37); Albumin 4.1 g/dL (3.4-5.0); Alkaline Phosphatase 86 U/L (46-116); Anion Gap 14.6 mmol/L (3-11); BUN 28 mg/dL (7-18); Bilirubin, Total 0.6 mg/dL (0.2-1.0); CO2 24.4 mmol/L (21.0-32.0); CREATININE 1.94 mg/dL (0.55-1.02); Calcium 9.9 mg/dL (8.5-10.1); Chloride 98 mmol/L (98-107); Estimated GFR 26.15 (mL/min/1.73m2); Glucose 146 mg/dL (70-100); NT-proBNP 139 pg/mL; Potassium 3.8 mmol/L (3.5-5.1); Sodium 137 mmol/L (136-145); Total Protein 7.8 g/dL (6.4-8.2); Troponin I < 0.02 ng/mL (0.00-0.06)
[2018-04-25 12:37] LABS: D-Dimer 833 ng/mlFEU (<500)
--- NOTE | 2018-04-25 13:18 | MERGE_ITS ---
*[facility]* *[facility]* [address] [place] [address] Date of study: 04/25/2018 Transthoracic Echocardiography M-mode, complete 2D, complete spectral Doppler, and color Doppler *STUDY CONCLUSIONS* Summary: 1. Left ventricle: The cavity size was normal. Wall thickness was normal. Systolic function was hyperdynamic. The estimated ejection fraction was 65-70%. Wall motion was normal; there were no regional wall motion abnormalities. 2. Right ventricle: The cavity size was normal. Wall thickness was normal. Systolic function was normal. 3. Pulmonary arteries: The tricuspid jet envelope definition was inadequate for estimation of RV systolic pressure. There were no indirect findings to suggest moderate or severe pulmonary hypertension. *PATIENT PRESENTATION* Height: 152.4cm ((60in) ) S/D Pressure: 134 / 87 Weight: 80.7kg ((177.6lb) ) BSA: 1.89m^2 Test start time: 01:15 PM. Test stop time: 02:15 PM. CONSULTING Angeli Paez PERFORMING Unknown PERFORMING [facility] ORDERING Kirsty Kraus REFERRING Kirsty Kraus [address] LIGHT RT Vish EscobarR)(GAYLE)[place] *PROCEDURE DATA* Procedure information: The patient was identified by two identifiers. This study was interpreted by [facility]. Pertinent images and digital data are archived for permanent storage and are available for subsequent review. No prior study was available for comparison. Study status: STAT. Transthoracic echocardiography. M-mode, complete 2D, complete spectral Doppler, and color Doppler. A Transthoracic Echocardiogram was performed. Scanning was performed from the parasternal, apical, subcostal, and suprasternal notch acoustic windows. Images were obtained using an [id number] cardiac ultrasound machine. Study completion: The patient tolerated the procedure well. There were no complications. History: PMH: Ca PT. Concern for PE cannot have CT . poss pulm embolism. r/o right heart strain. *CARDIAC ANATOMY* Left ventricle: The cavity size was normal. Wall thickness was normal. Systolic function was hyperdynamic. The estimated ejection fraction was 65-70%. Wall motion was normal; there were no regional wall motion abnormalities. Aortic valve: Trileaflet; normal thickness leaflets. Mobility was not restricted. Doppler: Transvalvular velocity was within the normal range. There was no stenosis. There was no significant regurgitation. VTI ratio of LVOT to aortic valve: 0.63. Valve area (VTI): 1.7cm^2. Indexed valve area (VTI): 0.9cm^2/m^2. Peak velocity ratio of LVOT to aortic valve: 0.66. Valve area (Vmax): 1.8cm^2. Indexed valve area (Vmax): 1cm^2/m^2. Mean velocity ratio of LVOT to aortic valve: 0.68. Valve area (Vmean): 1.9cm^2. Indexed valve area (Vmean): 1cm^2/m^2. Mean gradient (S): 5.6mm Hg. Peak gradient (S): 11.6mm Hg. Aorta: Aortic root: The aortic root was normal in size. Ascending aorta: The ascending aorta was normal in size. Mitral valve: Structurally normal valve. Mobility was not restricted. Doppler: Transvalvular velocity was within the normal range. There was no evidence for stenosis. There was no significant regurgitation. Valve area by pressure half-time: 4.2cm^2. Indexed valve area by pressure half-time: 2.2cm^2/m^2. Peak gradient (D): 2.5mm Hg. Left atrium: The atrium was normal in size. Right ventricle: The cavity size was normal. Wall thickness was normal. Systolic function was normal. Pulmonic valve: Structurally normal valve. Doppler: Transvalvular velocity was within the normal range. There was no evidence for stenosis. There was trivial regurgitation. Peak gradient (S): 5.6mm Hg. Tricuspid valve: Structurally normal valve. Doppler: Transvalvular velocity was within the normal range. There was no evidence for stenosis. There was no significant regurgitation. Pulmonary artery: The tricuspid jet envelope definition was inadequate for estimation of RV systolic pressure. There were no indirect findings (abnormal RV volume or geometry, altered pulmonary flow velocity profile, or leftward septal displacement) to suggest moderate or severe pulmonary hypertension. Right atrium: The atrium was normal in size. Pericardium: There was no pericardial effusion. Systemic veins: Inferior vena cava: Well visualized. The vessel was small, appearing collapsed, consistent with low central venous pressure. The respirophasic diameter changes were in the normal range (greater than or equal to 50%). Baseline ECG: Normal sinus rhythm. Measurements Left ventricle Value Reference LV ID, ED, PLAX 4.4 cm 3.5 - 6.0 LV ID, ES, PLAX 2.6 cm 2.1 - 4.0 LV PW thickness, ED, PLAX 1.1 cm LV end-diastolic volume, 1-p A2C 74 ml LV ejection fraction, 1-p A2C 71 % LV end-diastolic volume, 1-p A4C 75 ml LV ejection fraction, 1-p A4C 59 % LV e', lateral 0.084 m/sec LV E/e', lateral 9 LV e', medial 0.078 m/sec LV E/e', medial 10 LV e', average 0.081 m/sec LV E/e', average 10 Ventricular septum Value Reference IVS thickness, ED, PLAX 1.0 cm LVOT Value Reference LVOT ID, A-P 1.9 cm LVOT area 2.8 cm^2 LVOT peak velocity, S 1.12 m/sec LVOT mean velocity, S 0.75 m/sec LVOT VTI, S 18.2 cm LVOT peak gradient, S 5.1 mm Hg LVOT mean gradient, S 2.5 mm Hg Stroke volume (SV), LVOT DP 50 ml Stroke index (SV/bsa), LVOT DP 27 ml/m^2 Aortic valve Value Reference Aortic valve peak velocity, S 1.7 m/sec Aortic valve mean velocity, S 1.11 m/sec Aortic valve VTI, S 29.0 cm Aortic mean gradient, S 5.6 mm Hg Aortic peak gradient, S 11.6 mm Hg VTI ratio, LVOT/AV 0.63 Aortic valve area, VTI 1.7 cm^2 Velocity ratio, peak, LVOT/AV 0.66 Aortic valve area, peak velocity 1.8 cm^2 Velocity ratio, mean, LVOT/AV 0.68 Aortic valve area, mean velocity 1.9 cm^2 Aortic valve area/bsa, mean velocity 1 cm^2/m^2 Aorta Value Reference Aortic root ID, ED 3.0 cm Ascending aorta ID, A-P, S 3.1 cm Left atrium Value Reference LA ID, A-P, ES 3.0 cm LA ID/bsa, A-P 1.6 cm/m^2 <=2.2 LA area, ES, A4C 15.3 cm^2 8.8 - 23.4 LA area, ES, A2C 10 cm^2 LA volume/bsa, ES, 1-p A4C 25 ml/m^2 LA volume, ES, 2-p 26 ml LA volume/bsa, ES, 2-p 14 ml/m^2 LA/aortic root ratio 1 Mitral valve Value Reference Mitral E-wave peak velocity 0.79 m/sec Mitral A-wave peak velocity 1.02 m/sec Mitral deceleration time 179 ms 150 - 230 Mitral pressure half-time 52 ms Mitral peak gradient, D 2.5 mm Hg Mitral E/A ratio, peak 0.77 Mitral valve area, PHT, DP 4.2 cm^2 Pulmonary veins Value Reference Pulmonary vein peak velocity, S 0.98 m/sec Pulmonary vein peak velocity, D 0.48 m/sec Pulmonary vein velocity ratio, peak, 2.06 S/D Pulmonary vein A-wave reversal peak 0.89 m/sec velocity Tricuspid valve Value Reference Tricuspid regurg peak velocity 2.9 m/sec Tricuspid peak RV-RA gradient 32.5 mm Hg Right atrium Value Reference RA area, ES, A4C 12.4 cm^2 8.3 - 19.5 Pulmonic valve Value Reference Pulmonic peak gradient, S 5.6 mm Hg Legend: (L) and (H) stevenson values outside specified reference range. I have personally reviewed the images and have reviewed and edited the reported findings. Electronically signed by Lokesh Eastman 04/25/2018 14:46
[2018-04-25 16:06] LABS: Troponin I < 0.02 ng/mL (0.00-0.06)
== END 2018-04-25 22:20 | disposition home or self-care (01) ==
PROVIDERS: Emergency Provider Student in an Organized Health Care Education/Training Program; PCP Family Medicine
DX: R06.02 Shortness of breath (principal); D64.9 Anemia, unspecified; D69.6 Thrombocytopenia, unspecified; R79.1 Abnormal coagulation profile; C56.9 Malignant neoplasm of unspecified ovary; Z79.899 Other long term (current) drug therapy; I10 Essential (primary) hypertension; E11.9 Type 2 diabetes mellitus without complications; Z79.4 Long term (current) use of insulin
CPT/HCPCS: 36415; 80053; 86850; 86900; 86901; 86920; 86945; 87449; 99283; 71046; 83880; 84484; 85025; 85379; 85610; 93306; P9016

== ENCOUNTER 2018-05-14 12:20 | Outpatient (RCR) | payer MEDICAID, SELFPAY ==
[2018-04-26] MEDS: Heparin 500 UNITS/5 ML SYRINGE IV (15:11)
[2018-04-26] MEDS: Normal Saline Flush 10 ML SYR IVP (15:11)
[2018-04-26 15:30] LABS: Abs Immature Grans 0.01 k/cumm (0.0-0.09); Absolute Basophil Count 0.03 k/cumm (0.0-0.2); Absolute Eosinophil Count 0.17 k/cumm (0.0-0.7); Absolute Lymphocyte Count 1.13 k/cumm (1.2-3.4); Absolute Monocyte Count 0.48 k/cumm (0.11-0.7); Basophils % 0.7; HCT 21.6 % (36.0-46.0); HGB 7.7 g/dL (12.0-15.5); Immature Grans % 0.2; Lymphocytes % 26.9; Mean Corp. HGB Concentration 35.6 g/dL (32.0-36.0); Mean Corpuscular Hemoglobin 33.8 pg (27.0-33.0); Mean Corpuscular Volume 94.7 fL (80-95); Mean Platelet Volume 9.3 fL (8.0-11.0); Monocytes % 11.4; Neutrophils % 56.8; Platelet Count 100 x1000/uL (130-400); RBC 2.28 m/cumm (4.00-5.20); RBC Distribution Width 14.1 % (11.7-14.6)
[2018-04-26 15:33] LABS: Absolute Neutrophil Count 2.39 k/cumm (1.2-6.7)
[2018-04-26 17:34] LABS: Hemoglobin A1C 8.9 % (4.5-6.2)
[2018-04-30 09:33] LABS: Absolute Basophil Count 0.04 k/cumm (0.0-0.2); Absolute Eosinophil Count 0.26 k/cumm (0.0-0.7); Absolute Lymphocyte Count 1.19 k/cumm (1.2-3.4); Absolute Monocyte Count 0.51 k/cumm (0.11-0.7); Absolute Neutrophil Count 1.74 k/cumm (1.2-6.7); Basophils % 1.1; HCT 25.4 % (36.0-46.0); HGB 8.9 g/dL (12.0-15.5); Lymphocytes % 31.8; Mean Corpuscular Hemoglobin 32.4 pg (27.0-33.0); Mean Corpuscular Volume 92.4 fL (80-95); Mean Platelet Volume 9.2 fL (8.0-11.0); Monocytes % 13.6; Neutrophils % 46.5; Platelet Count 102 x1000/uL (130-400); RBC 2.75 m/cumm (4.00-5.20); RBC Distribution Width 15.9 % (11.7-14.6); White Blood Cell Count 3.74 k/cumm (4.4-10.8)
[2018-04-30 09:49] LABS: PTT Activated 23.3 sec (21.0-31.4); Prothrombin Time 9.8 sec (9.3-11.0)
[2018-04-30 09:51] LABS: Magnesium 1.6 mg/dL (1.8-2.4)
[2018-05-02 11:49] LABS: CA 125 5 U/mL (0-30)
[2018-05-03] MEDS: Heparin 500 UNITS/5 ML SYRINGE IV (13:33)
[2018-05-03] MEDS: Normal Saline Flush 10 ML SYR IVP (13:33)
[2018-05-03 13:51] LABS: Absolute Basophil Count 0.04 k/cumm (0.0-0.2); Absolute Eosinophil Count 0.18 k/cumm (0.0-0.7); Absolute Lymphocyte Count 1.04 k/cumm (1.2-3.4); Absolute Monocyte Count 0.55 k/cumm (0.11-0.7); Absolute Neutrophil Count 1.49 k/cumm (1.2-6.7); Basophils % 1.2; Eosinophils % 5.5; HCT 24.2 % (36.0-46.0); HGB 8.4 g/dL (12.0-15.5); Lymphocytes % 31.5; Mean Corp. HGB Concentration 34.7 g/dL (32.0-36.0); Mean Corpuscular Hemoglobin 32.4 pg (27.0-33.0); Mean Corpuscular Volume 93.4 fL (80-95); Mean Platelet Volume 9.2 fL (8.0-11.0); Monocytes % 16.7; Neutrophils % 45.1; Platelet Count 148 x1000/uL (130-400); RBC 2.59 m/cumm (4.00-5.20); RBC Distribution Width 15.1 % (11.7-14.6)
[2018-05-08] MEDS: Heparin 500 UNITS/5 ML SYRINGE IV (14:15)
[2018-05-08] MEDS: Normal Saline Flush 10 ML SYR IVP (14:15)
[2018-05-08 14:58] LABS: Abs Immature Grans 0.01 k/cumm (0.0-0.09); Absolute Basophil Count 0.02 k/cumm (0.0-0.2); Absolute Eosinophil Count 0.17 k/cumm (0.0-0.7); Absolute Lymphocyte Count 1.18 k/cumm (1.2-3.4); Absolute Monocyte Count 0.68 k/cumm (0.11-0.7); Absolute Neutrophil Count 1.64 k/cumm (1.2-6.7); Basophils % 0.5; Eosinophils % 4.6; HCT 23.2 % (36.0-46.0); HGB 7.9 g/dL (12.0-15.5); Immature Grans % 0.3; Lymphocytes % 31.9; Mean Corp. HGB Concentration 34.1 g/dL (32.0-36.0); Mean Corpuscular Hemoglobin 32.9 pg (27.0-33.0); Mean Corpuscular Volume 96.7 fL (80-95); Mean Platelet Volume 8.9 fL (8.0-11.0); Monocytes % 18.4; Neutrophils % 44.3; Platelet Count 258 x1000/uL (130-400); RBC Distribution Width 18.1 % (11.7-14.6)
[2018-05-08 15:29] LABS: Anisocytosis 1+
[2018-05-10] MEDS: Normal Saline Flush 10 ML SYR IVP (13:35)
[2018-05-10] MEDS: Heparin 500 UNITS/5 ML SYRINGE IV (13:35)
[2018-05-10 14:04] LABS: Abs Immature Grans 0.01 k/cumm (0.0-0.09); Absolute Basophil Count 0.05 k/cumm (0.0-0.2); Absolute Eosinophil Count 0.19 k/cumm (0.0-0.7); Absolute Monocyte Count 0.72 k/cumm (0.11-0.7); Absolute Neutrophil Count 1.49 k/cumm (1.2-6.7); Basophils % 1.4; Eosinophils % 5.3; HCT 22.5 % (36.0-46.0); HGB 7.6 g/dL (12.0-15.5); Immature Grans % 0.3; Lymphocytes % 30.9; Mean Corp. HGB Concentration 33.8 g/dL (32.0-36.0); Mean Corpuscular Hemoglobin 33.2 pg (27.0-33.0); Mean Corpuscular Volume 98.3 fL (80-95); Mean Platelet Volume 8.6 fL (8.0-11.0); Monocytes % 20.2; Neutrophils % 41.9; Platelet Count 282 x1000/uL (130-400); RBC 2.29 m/cumm (4.00-5.20); RBC Distribution Width 19.4 % (11.7-14.6); White Blood Cell Count 3.56 k/cumm (4.4-10.8)
[2018-05-10 14:39] LABS: Anisocytosis 2+; Diff Comment Manual Differential
[2018-05-10 14:40] LABS: Macrocytosis 1+; Microcytosis 1+; Polychromasia Present
[2018-05-14] MEDS: Heparin 500 UNITS/5 ML SYRINGE IV (14:40)
[2018-05-14] MEDS: Normal Saline Flush 10 ML SYR IVP (14:40)
[2018-05-14 15:36] LABS: HCT 29.2 % (36.0-46.0); HGB 9.7 g/dL (12.0-15.5); Mean Corp. HGB Concentration 33.2 g/dL (32.0-36.0); Mean Corpuscular Hemoglobin 32.7 pg (27.0-33.0); Mean Corpuscular Volume 98.3 fL (80-95); Mean Platelet Volume 8.6 fL (8.0-11.0); Platelet Count 329 x1000/uL (130-400); RBC 2.97 m/cumm (4.00-5.20); RBC Distribution Width 20.1 % (11.7-14.6); White Blood Cell Count 3.03 k/cumm (4.4-10.8)
[2018-05-14 15:37] LABS: Absolute Basophil Count 0.03 k/cumm (0.0-0.2); Absolute Eosinophil Count 0.09 k/cumm (0.0-0.7); Absolute Lymphocyte Count 1.03 k/cumm (1.2-3.4); Absolute Monocyte Count 0.48 k/cumm (0.11-0.7); Absolute Neutrophil Count 1.39 k/cumm (1.2-6.7); Anisocytosis 1+; Atypical Lymphocytes % 6; Diff Comment Manual Differential; Macrocytosis 1+; Polychromasia Present
== END 2018-05-20 23:59 | disposition home or self-care (01) ==
LOC: INF 12:20
PROVIDERS: PCP Family Medicine; Visit Provider Obstetrics & Gynecology Gynecologic Oncology
DX: C56.9 Malignant neoplasm of unspecified ovary (principal); Z45.2 Encounter for adjustment and management of vascular access device
CPT/HCPCS: 36591; 86304; 83036; 83735; 85025; 85610; 85730

== ENCOUNTER 2018-05-29 13:51 | Outpatient (CLI) | payer MEDICAID, SELFPAY ==
--- NOTE | 2018-05-29 15:00 | DI.RAD_ITS ---
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 Comparison xray is 05/07/10. Since the prior examination, the patient has had anterior cervical fusion from C 4 through C 7. There is an anterior plate in place. The most inferior screws do not definitely appear to be engaged within the vertebral body. There does appear to be minimal anterolisthesis of C 7 on T 1. There is mild reversal of the normal cervical curvature at the C 3-4 level. No acute fracture is identified. No significant neural foraminal stenosis is appreciated. There is an indwelling central venous catheter present. The odontoid is intact. The lateral masses are well aligned. IMPRESSION: 1. Interval fusion from C 4 through C 7. 2. Anterior plate spanning C 4 through C 7. The inferior screws do not appear to be engaged in bone. A CT scan of the cervical spine should be considered to assess the location of the most inferior screws. 3. Minimal apparent anterolisthesis of C 7 on T 1. This may be further evaluated with a CT scan. 4. No acute fracture in the cervical spine. LEFT WRIST: Four views. No acute fracture or dislocation is identified. Mild degenerative changes are seen at the first carpal metacarpal joint. There is a well corticated osseous fragment seen lateral to the first carpal metacarpal joint which appears old. The soft tissues are unremarkable. IMPRESSION: NO definite acute fracture or dislocation.
== END 2018-05-29 14:11 ==
PROVIDERS: PCP Family Medicine; Visit Provider Family Medicine
DX: M25.532 Pain in left wrist (principal); M18.12 Unilateral primary osteoarthritis of first carpometacarpal joint, left hand; M54.2 Cervicalgia; M50.00 Cervical disc disorder with myelopathy, unspecified cervical region; Z98.1 Arthrodesis status
CPT/HCPCS: 72050; 73110

== ENCOUNTER 2018-06-19 01:13 | Outpatient (RCR) | payer MEDICAID, SELFPAY ==
[2018-05-23] MEDS: Heparin 500 UNITS/5 ML SYRINGE IV (15:00)
[2018-05-23] MEDS: Normal Saline Flush 10 ML SYR IVP (15:06)
[2018-05-23 15:20] LABS: Abs Immature Grans 0.01 k/cumm (0.0-0.09); Absolute Basophil Count 0.04 k/cumm (0.0-0.2); Absolute Eosinophil Count 0.14 k/cumm (0.0-0.7); Absolute Lymphocyte Count 1.44 k/cumm (1.2-3.4); Absolute Monocyte Count 0.85 k/cumm (0.11-0.7); Absolute Neutrophil Count 3.04 k/cumm (1.2-6.7); Basophils % 0.7; Eosinophils % 2.5; HGB 10.2 g/dL (12.0-15.5); Immature Grans % 0.2; Lymphocytes % 26.1; Mean Corp. HGB Concentration 32.9 g/dL (32.0-36.0); Mean Corpuscular Hemoglobin 32.8 pg (27.0-33.0); Mean Corpuscular Volume 99.7 fL (80-95); Mean Platelet Volume 8.5 fL (8.0-11.0); Monocytes % 15.4; Neutrophils % 55.1; Platelet Count 396 x1000/uL (130-400); RBC 3.11 m/cumm (4.00-5.20); RBC Distribution Width 19.8 % (11.7-14.6); White Blood Cell Count 5.52 k/cumm (4.4-10.8)
[2018-05-23 15:37] LABS: Anisocytosis 1+
[2018-05-29] MEDS: Heparin 500 UNITS/5 ML SYRINGE IV (15:09)
[2018-05-29] MEDS: Normal Saline Flush 10 ML SYR IVP (15:09)
[2018-05-29 15:11] LABS: Abs Immature Grans 0.01 k/cumm (0.0-0.09); Absolute Basophil Count 0.04 k/cumm (0.0-0.2); Absolute Eosinophil Count 0.27 k/cumm (0.0-0.7); Absolute Lymphocyte Count 1.24 k/cumm (1.2-3.4); Absolute Monocyte Count 0.53 k/cumm (0.11-0.7); Absolute Neutrophil Count 2.19 k/cumm (1.2-6.7); Basophils % 0.9; Eosinophils % 6.3; HCT 32.3 % (36.0-46.0); HGB 10.6 g/dL (12.0-15.5); Immature Grans % 0.2; Mean Corp. HGB Concentration 32.8 g/dL (32.0-36.0); Mean Corpuscular Hemoglobin 33.2 pg (27.0-33.0); Mean Corpuscular Volume 101.3 fL (80-95); Mean Platelet Volume 8.1 fL (8.0-11.0); Monocytes % 12.4; Neutrophils % 51.2; Platelet Count 327 x1000/uL (130-400); RBC 3.19 m/cumm (4.00-5.20); RBC Distribution Width 19.4 % (11.7-14.6); White Blood Cell Count 4.28 k/cumm (4.4-10.8)
[2018-05-29 15:33] LABS: Anisocytosis 1+; Macrocytosis 1+; Polychromasia Present
[2018-06-12] MEDS: Normal Saline Flush 10 ML SYR IVP (13:54)
[2018-06-12] MEDS: Heparin 500 UNITS/5 ML SYRINGE IV (13:54)
[2018-06-12 14:05] LABS: Abs Immature Grans 0.01 k/cumm (0.0-0.09); Absolute Basophil Count 0.05 k/cumm (0.0-0.2); Absolute Eosinophil Count 0.25 k/cumm (0.0-0.7); Absolute Lymphocyte Count 1.32 k/cumm (1.2-3.4); Absolute Neutrophil Count 1.91 k/cumm (1.2-6.7); Basophils % 1.2; Eosinophils % 6.2; HCT 31.6 % (36.0-46.0); HGB 10.5 g/dL (12.0-15.5); Immature Grans % 0.2; Lymphocytes % 32.7; Mean Corp. HGB Concentration 33.2 g/dL (32.0-36.0); Mean Corpuscular Hemoglobin 33.9 pg (27.0-33.0); Mean Corpuscular Volume 101.9 fL (80-95); Mean Platelet Volume 8.3 fL (8.0-11.0); Monocytes % 12.4; Neutrophils % 47.3; Platelet Count 273 x1000/uL (130-400); RBC Distribution Width 17.2 % (11.7-14.6); White Blood Cell Count 4.04 k/cumm (4.4-10.8)
[2018-06-19 12:16] LABS: Abs Immature Grans 0.01 k/cumm (0.0-0.09); Absolute Basophil Count 0.04 k/cumm (0.0-0.2); Absolute Eosinophil Count 0.24 k/cumm (0.0-0.7); Absolute Lymphocyte Count 1.06 k/cumm (1.2-3.4); Absolute Monocyte Count 0.48 k/cumm (0.11-0.7); Absolute Neutrophil Count 2.03 k/cumm (1.2-6.7); Eosinophils % 6.2; HCT 31.5 % (36.0-46.0); HGB 10.4 g/dL (12.0-15.5); Immature Grans % 0.3; Lymphocytes % 27.5; Mean Corpuscular Hemoglobin 33.9 pg (27.0-33.0); Mean Corpuscular Volume 102.6 fL (80-95); Mean Platelet Volume 8.3 fL (8.0-11.0); Monocytes % 12.4; Neutrophils % 52.6; Platelet Count 274 x1000/uL (130-400); RBC 3.07 m/cumm (4.00-5.20); RBC Distribution Width 16.4 % (11.7-14.6); White Blood Cell Count 3.86 k/cumm (4.4-10.8)
[2018-06-19] MEDS: Normal Saline Flush 10 ML SYR IVP (12:59)
[2018-06-19] MEDS: Heparin 500 UNITS/5 ML SYRINGE IV (12:59)
== END 2018-06-19 23:59 | disposition home or self-care (01) ==
LOC: INF 01:13
PROVIDERS: PCP Family Medicine; Visit Provider Obstetrics & Gynecology Gynecologic Oncology
DX: C56.9 Malignant neoplasm of unspecified ovary (principal); Z45.2 Encounter for adjustment and management of vascular access device
CPT/HCPCS: 36591; 72050; 73110; 85025

== ENCOUNTER 2018-07-11 12:11 | Outpatient (CLI) | payer MEDICAID, SELFPAY ==
--- NOTE | 2018-07-11 11:25 | DI.RAD_ITS ---
SYMPTOM/DIAGNOSIS: LT HAND PAIN, M79.643, H/O FALL LEFT HAND: No acute or subacute fractures are identified. There are no bony erosions. There are mild degenerative changes of the interphalangeal joints. Degenerative changes are also seen at the first carpal metacarpal joint. IMPRESSION: Degenerative changes. No acute abnormality.
== END 2018-07-11 12:31 ==
PROVIDERS: PCP Family Medicine; Visit Provider Family Medicine
DX: M79.642 Pain in left hand (principal); M19.042 Primary osteoarthritis, left hand
CPT/HCPCS: 73130

== ENCOUNTER 2018-07-13 00:54 | Outpatient (RCR) | payer MEDICAID, SELFPAY ==
[2018-07-13] MEDS: Normal Saline Flush 10 ML SYR IVP (11:25)
[2018-07-13] MEDS: Heparin 500 UNITS/5 ML SYRINGE IV (11:26)
[2018-07-13 12:36] LABS: ESR 63 MM/HR (0-30)
[2018-07-16 09:17] LABS: Cyclic Citrullinated Peptide <2.5 U/mL (<5.0)
[2018-07-16 10:42] LABS: Rheumatoid Factor 8 IU/mL (<12.5)
[2018-07-17 14:17] LABS: ANA Interpretation Positive (NEGAT)
== END 2018-07-20 23:59 | disposition home or self-care (01) ==
LOC: INF 00:54
PROVIDERS: PCP Family Medicine; Visit Provider Obstetrics & Gynecology Gynecologic Oncology
DX: M79.643 Pain in unspecified hand (principal); Z45.2 Encounter for adjustment and management of vascular access device
CPT/HCPCS: 36591; 85652; 86200; 86038; 86140; 86431

== ENCOUNTER 2018-10-11 10:17 | Outpatient (RCR) | payer MEDICARE, MEDICAID, SELFPAY ==
[2018-10-11] MEDS: Normal Saline Flush 10 ML SYR IVP (10:56)
[2018-10-11] MEDS: Heparin 500 UNITS/5 ML SYRINGE IVP (10:57)
[2018-10-11 12:38] LABS: Absolute Basophil Count 0.05 k/cumm (0.0-0.2); Absolute Eosinophil Count 0.16 k/cumm (0.0-0.7); Absolute Lymphocyte Count 1.44 k/cumm (1.2-3.4); Absolute Monocyte Count 0.71 k/cumm (0.11-0.7); Absolute Neutrophil Count 2.88 k/cumm (1.2-6.7); Eosinophils % 3.1; HCT 34.5 % (36.0-46.0); HGB 11.5 g/dL (12.0-15.5); Lymphocytes % 27.5; Mean Corp. HGB Concentration 33.3 g/dL (32.0-36.0); Mean Corpuscular Hemoglobin 31.9 pg (27.0-33.0); Mean Corpuscular Volume 95.6 fL (80-95); Mean Platelet Volume 8.5 fL (8.0-11.0); Monocytes % 13.5; Neutrophils % 54.9; Platelet Count 339 x1000/uL (130-400); RBC 3.61 m/cumm (4.00-5.20); RBC Distribution Width 14.1 % (11.7-14.6); White Blood Cell Count 5.24 k/cumm (4.4-10.8)
[2018-10-11 12:56] LABS: Hemoglobin A1C 8.5 % (4.5-6.2)
[2018-10-11 13:01] LABS: ALT 26 U/L (12-78); AST 15 U/L (15-37); Albumin 4.1 g/dL (3.4-5.0); Alkaline Phosphatase 102 U/L (46-116); Anion Gap 9.7 mmol/L (3-11); BUN 33 mg/dL (7-18); Bilirubin, Total 0.4 mg/dL (0.2-1.0); CO2 29.3 mmol/L (21.0-32.0); CREATININE 1.43 mg/dL (0.55-1.02); Calcium 9.6 mg/dL (8.5-10.1); Chloride 99 mmol/L (98-107); Estimated GFR 37.06 (mL/min/1.73m2); Glucose 152 mg/dL (70-100); Potassium 3.9 mmol/L (3.5-5.1); Sodium 138 mmol/L (136-145); TSH (W/Ref FT4) 4.59 uIU/mL (0.36-3.74); Total Protein 8.1 g/dL (6.4-8.2)
[2018-10-11 13:20] LABS: FREE T4 0.86 ng/dL (0.76-1.46)
== END 2018-10-20 23:59 | disposition home or self-care (01) ==
LOC: INF 10:17
PROVIDERS: PCP Family Medicine; Visit Provider Family Medicine
DX: E11.65 Type 2 diabetes mellitus with hyperglycemia (principal); Z45.2 Encounter for adjustment and management of vascular access device; C56.9 Malignant neoplasm of unspecified ovary
CPT/HCPCS: 36591; 80053; 83036; 84439; 84443; 85025

== ENCOUNTER 2018-11-09 13:20 | Outpatient (RCR) | payer MEDICARE, MEDICAID, SELFPAY ==
[2018-11-09] MEDS: Normal Saline Flush 10 ML SYR IVP (14:53)
[2018-11-09 15:03] LABS: Abs Immature Grans 0.01 k/cumm (0.0-0.09); Absolute Basophil Count 0.04 k/cumm (0.0-0.2); Absolute Eosinophil Count 0.17 k/cumm (0.0-0.7); Absolute Monocyte Count 0.44 k/cumm (0.11-0.7); Absolute Neutrophil Count 2.05 k/cumm (1.2-6.7); Eosinophils % 4.1; HCT 35.4 % (36.0-46.0); Immature Grans % 0.2; Lymphocytes % 34.1; Mean Corp. HGB Concentration 33.9 g/dL (32.0-36.0); Mean Corpuscular Hemoglobin 32.3 pg (27.0-33.0); Mean Corpuscular Volume 95.4 fL (80-95); Mean Platelet Volume 8.7 fL (8.0-11.0); Monocytes % 10.7; Neutrophils % 49.9; Platelet Count 348 x1000/uL (130-400); RBC 3.71 m/cumm (4.00-5.20); RBC Distribution Width 13.7 % (11.7-14.6); White Blood Cell Count 4.11 k/cumm (4.4-10.8)
[2018-11-09 15:24] LABS: ALT 31 U/L (14-59); AST 23 U/L (15-37); Alkaline Phosphatase 120 U/L (46-116); Anion Gap 13.1 mmol/L (3-11); BUN 21 mg/dL (7-18); Bilirubin, Total 0.5 mg/dL (0.2-1.0); CO2 27.9 mmol/L (21.0-32.0); CREATININE 1.44 mg/dL (0.55-1.02); Calcium 9.4 mg/dL (8.5-10.1); Chloride 97 mmol/L (98-107); Estimated GFR 36.76 (mL/min/1.73m2); Glucose 238 mg/dL (70-100); Potassium 3.7 mmol/L (3.5-5.1); Sodium 138 mmol/L (136-145); TSH 2.38 uIU/mL (0.36-3.74); Total Protein 8.2 g/dL (6.4-8.2)
== END 2018-11-19 23:59 | disposition home or self-care (01) ==
LOC: INF 13:20
PROVIDERS: PCP Family Medicine; Visit Provider Obstetrics & Gynecology Gynecologic Oncology
DX: R41.82 Altered mental status, unspecified (principal); Z45.2 Encounter for adjustment and management of vascular access device; C56.9 Malignant neoplasm of unspecified ovary
CPT/HCPCS: 36591; 80053; 84443; 85025

== ENCOUNTER 2018-11-09 14:24 | Outpatient (CLI) | payer MEDICARE, MEDICAID, SELFPAY ==
--- NOTE | 2018-11-09 14:30 | DI.CT_ITS ---
EXAM: CT HEAD W CLINICAL HISTORY: change in memory; ovarian ca. TECHNIQUE: Cranial CT was performed prior to and following intravenous infusion of 100 cc of Omnipaq ue 350 COMPARISON: No exams were available for comparison FINDINGS: Ventricular system is normal in appearance. No intracranial hemorrhage mass effect or midline shift. Minimal changes of cerebral atrophy and minimal presumed microvascular ischemic changes of perivent ricular white matter. No evidence of intracranial mass lesion or enhancing lesion. IMPRESSION: Examination normal for age, no evidence of metastatic disease.
[2018-11-09] MEDS: Omnipaque 350 MG/ML 100 ML BTL IJ (16:03)
[2018-11-09] MEDS: Heparin 500 UNITS/5 ML SYRINGE IVP (17:05)
--- NOTE | 2018-11-09 17:06 | NUR.NOTE ---
Nursing Note: This nurse called to radiology to de access port for pt after radiology. Pt states she uses heparin flush for de access. Good blood return, port flushed with heparin, morales needle is withdrawn from right port a cath. Bleeding is controlled. Bandaid applied.
== END 2018-11-09 14:44 ==
PROVIDERS: PCP Family Medicine; Visit Provider Family Medicine
DX: R41.82 Altered mental status, unspecified (principal); C56.9 Malignant neoplasm of unspecified ovary; G31.89 Other specified degenerative diseases of nervous system
CPT/HCPCS: 36591; 80053; 70460; 84443; 85025; J3490

== ENCOUNTER 2018-12-13 01:07 | Outpatient (CLI) | payer MEDICARE, MEDICAID, SELFPAY ==
--- NOTE | 2018-12-13 15:55 | DI.US_ITS ---
EXAM: US UPPER EXTREMITY VENOUS LT CLINICAL HISTORY: LUE EDEMA, ? DVT,R60.9 TECHNIQUE: Ultrasound performed using standard protocol. COMPARISON: Cardiac from 04/25/2018 FINDINGS: Duplex evaluation of the deep venous system of the left upper extremity was performed according to th e usual protocol. The veins of the upper extremity are freely compressible throughout. There is no visible thrombus to the level of the subclavian vein. IMPRESSION: Negative DVT ultrasound left upper extremity
== END 2018-12-13 01:27 ==
PROVIDERS: PCP Family Medicine; Visit Provider Obstetrics & Gynecology Gynecologic Oncology
DX: R60.0 Localized edema (principal); R22.32 Localized swelling, mass and lump, left upper limb
CPT/HCPCS: 93971

== ENCOUNTER 2018-12-31 14:47 | Outpatient (RCR) | payer MEDICARE, MEDICAID, SELFPAY ==
[2018-12-31] MEDS: Normal Saline Flush 10 ML SYR IVP (14:57)
[2018-12-31] MEDS: Heparin 500 UNITS/5 ML SYRINGE (14:58)
[2018-12-31 16:21] LABS: Abs Immature Grans 0.01 k/cumm (0.0-0.09); Absolute Basophil Count 0.04 k/cumm (0.0-0.2); Absolute Eosinophil Count 0.25 k/cumm (0.0-0.7); Absolute Neutrophil Count 2.59 k/cumm (1.2-6.7); Basophils % 0.8; Eosinophils % 4.7; HCT 35.2 % (36.0-46.0); HGB 11.9 g/dL (12.0-15.5); Immature Grans % 0.2; Lymphocytes % 32.1; Mean Corp. HGB Concentration 33.8 g/dL (32.0-36.0); Mean Corpuscular Hemoglobin 31.4 pg (27.0-33.0); Mean Corpuscular Volume 92.9 fL (80-95); Mean Platelet Volume 9.1 fL (8.0-11.0); Monocytes % 13.2; Platelet Count 362 x1000/uL (130-400); RBC 3.79 m/cumm (4.00-5.20); RBC Distribution Width 13.3 % (11.7-14.6); White Blood Cell Count 5.29 k/cumm (4.4-10.8)
[2018-12-31 16:35] LABS: Hemoglobin A1C 9.9 % (4.5-6.2)
[2018-12-31 16:39] LABS: ALT 30 U/L (14-59); Alkaline Phosphatase 127 U/L (46-116); Anion Gap 10.1 mmol/L (3-11); BUN 31 mg/dL (7-18); Bilirubin, Total 0.2 mg/dL (0.2-1.0); CO2 28.9 mmol/L (21.0-32.0); CREATININE 1.65 mg/dL (0.55-1.02); Calcium 9.1 mg/dL (8.5-10.1); Chloride 96 mmol/L (98-107); Estimated GFR 31.42 (mL/min/1.73m2); Glucose 319 mg/dL (70-100); Potassium 3.7 mmol/L (3.5-5.1); Sodium 135 mmol/L (136-145); TSH (W/Ref FT4) 3.08 uIU/mL (0.36-3.74); Total Protein 7.8 g/dL (6.4-8.2)
== END 2019-01-19 23:59 | disposition home or self-care (01) ==
LOC: INF 14:47
PROVIDERS: PCP Family Medicine; Visit Provider Family Medicine
DX: E11.65 Type 2 diabetes mellitus with hyperglycemia (principal); R41.82 Altered mental status, unspecified; C56.9 Malignant neoplasm of unspecified ovary; Z45.2 Encounter for adjustment and management of vascular access device
CPT/HCPCS: 36591; 80053; 83036; 84443; 85025

== ENCOUNTER 2019-01-28 00:07 | Outpatient (CLI) | payer MEDICARE, MEDICAID, SELFPAY ==
--- NOTE | 2019-01-28 14:29 | DI.RAD_ITS ---
EXAM: XR KNEE RT 4V+ INDICATION: right knee pain. COMPARISON: No exams were available for comparison TECHNIQUE: 2D digital imaging was performed. FINDINGS: A total knee prosthesis is seen. The femoral and tibial components appear unchanged. The patella is now situated abnormally superiorly in relation to the femur. There are calcifications below the low er pole the patella. The findings are suspicious for a patellar tendon rupture.
== END 2019-01-28 00:27 ==
PROVIDERS: PCP Family Medicine; Visit Provider Family Medicine
DX: M25.561 Pain in right knee (principal); Z96.651 Presence of right artificial knee joint
CPT/HCPCS: 73564

== ENCOUNTER 2019-02-21 11:49 | Outpatient (RCR) | payer MEDICARE, SELFPAY ==
[2019-02-21] MEDS: Heparin 500 UNITS/5 ML SYRINGE (15:09)
[2019-02-21] MEDS: Normal Saline Flush 10 ML SYR IVP (15:10)
[2019-02-21 15:20] LABS: Absolute Basophil Count 0.06 k/cumm (0.0-0.2); Absolute Eosinophil Count 0.27 k/cumm (0.0-0.7); Absolute Lymphocyte Count 1.55 k/cumm (1.2-3.4); Absolute Monocyte Count 0.48 k/cumm (0.11-0.7); Absolute Neutrophil Count 2.21 k/cumm (1.2-6.7); Basophils % 1.3; Eosinophils % 5.9; HCT 35.2 % (36.0-46.0); Lymphocytes % 33.9; Mean Corp. HGB Concentration 34.1 g/dL (32.0-36.0); Mean Corpuscular Hemoglobin 31.7 pg (27.0-33.0); Mean Corpuscular Volume 92.9 fL (80-95); Mean Platelet Volume 8.6 fL (8.0-11.0); Monocytes % 10.5; Neutrophils % 48.4; Platelet Count 368 x1000/uL (130-400); RBC 3.79 m/cumm (4.00-5.20); RBC Distribution Width 14.2 % (11.7-14.6); White Blood Cell Count 4.57 k/cumm (4.4-10.8)
[2019-02-21 15:34] LABS: ALT 26 U/L (14-59); AST 19 U/L (15-37); Albumin 3.7 g/dL (3.4-5.0); Alkaline Phosphatase 127 U/L (46-116); Anion Gap 10.5 mmol/L (3-11); BUN 24 mg/dL (7-18); Bilirubin, Total 0.3 mg/dL (0.2-1.0); CO2 28.5 mmol/L (21.0-32.0); CREATININE 1.41 mg/dL (0.55-1.02); Calcium 9.9 mg/dL (8.5-10.1); Chloride 98 mmol/L (98-107); Estimated GFR 37.67 (mL/min/1.73m2); Glucose 249 mg/dL (74-106); Magnesium 1.7 mg/dL (1.8-2.4); Potassium 4.1 mmol/L (3.5-5.1); Sodium 137 mmol/L (136-145); Total Protein 7.6 g/dL (6.4-8.2)
[2019-02-22 10:25] LABS: CA 125 5 U/mL (<30)
== END 2019-03-22 23:59 | disposition home or self-care (01) ==
LOC: INF 11:49
PROVIDERS: PCP Family Medicine; Visit Provider Obstetrics & Gynecology Gynecologic Oncology
DX: C56.1 Malignant neoplasm of right ovary (principal); Z45.2 Encounter for adjustment and management of vascular access device
CPT/HCPCS: 36591; 80053; 86304; 83735; 85025

== ENCOUNTER → 2019-03-14 10:52 | Outpatient (BNVA) | payer MEDICARE, SELFPAY | PROVIDERS: PCP Family Medicine; Referring Provider Family Medicine; Visit Provider Student in an Organized Health Care Education/Training Program | DX: M23.8X1 Other internal derangements of right knee (principal); M25.561 Pain in right knee; G89.29 Other chronic pain; Z96.651 Presence of right artificial knee joint; Z47.1 Aftercare following joint replacement surgery; E11.9 Type 2 diabetes mellitus without complications; I10 Essential (primary) hypertension; Z79.4 Long term (current) use of insulin | CPT/HCPCS: 99213; L1820 ==

== ENCOUNTER 2019-05-09 14:30 | Outpatient (RCR) | payer MEDICARE, SELFPAY ==
[2019-05-06] MEDS: Normal Saline Flush 10 ML SYR IVP (14:03)
[2019-05-06] MEDS: Heparin 500 UNITS/5 ML SYRINGE IV (14:04)
[2019-05-09] MEDS: Heparin 500 UNITS/5 ML SYRINGE IV (14:57)
[2019-05-09] MEDS: Normal Saline Flush 10 ML SYR IVP (14:57)
[2019-05-09 15:30] LABS: Hemoglobin A1C 9.3 % (3.8-5.6)
== END 2019-05-21 23:59 | disposition home or self-care (01) ==
LOC: INF 14:30
PROVIDERS: PCP Family Medicine; Visit Provider Nurse Practitioner
DX: E11.9 Type 2 diabetes mellitus without complications (principal); Z79.4 Long term (current) use of insulin; C56.9 Malignant neoplasm of unspecified ovary; Z45.2 Encounter for adjustment and management of vascular access device
CPT/HCPCS: 36591; 96523; 83036

== ENCOUNTER 2019-07-01 11:56 | Outpatient (CLI) | payer MEDICARE, SELFPAY ==
[2019-07-01 16:15] LABS: Abs Immature Grans 0.01 k/cumm (0.0-0.09); Absolute Basophil Count 0.05 k/cumm (0.0-0.2); Absolute Eosinophil Count 0.31 k/cumm (0.0-0.7); Absolute Lymphocyte Count 1.56 k/cumm (1.2-3.4); Absolute Monocyte Count 0.46 k/cumm (0.11-0.7); Absolute Neutrophil Count 2.24 k/cumm (1.2-6.7); Basophils % 1.1; Eosinophils % 6.7; HCT 35.1 % (36.0-46.0); HGB 11.9 g/dL (12.0-15.5); Immature Grans % 0.2 %; Lymphocytes % 33.7; Mean Corp. HGB Concentration 33.9 g/dL (32.0-36.0); Mean Corpuscular Hemoglobin 30.7 pg (27.0-33.0); Mean Corpuscular Volume 90.5 fL (80-95); Mean Platelet Volume 8.7 fL (8.0-11.0); Monocytes % 9.9; Neutrophils % 48.4; Platelet Count 360 x1000/uL (130-400); RBC 3.88 m/cumm (4.00-5.20); RBC Distribution Width 13.8 % (11.7-14.6); White Blood Cell Count 4.63 k/cumm (4.4-10.8)
[2019-07-01 16:38] LABS: PTT Activated 22.4 sec (21.0-31.4); Prothrombin Time 10.4 sec (9.3-11.0)
[2019-07-01 16:55] LABS: ALT 30 U/L (14-59); AST 26 U/L (15-37); Albumin 3.9 g/dL (3.4-5.0); Alkaline Phosphatase 125 U/L (46-116); BUN 20 mg/dL (7-18); Bilirubin, Total 0.3 mg/dL (0.2-1.0); CREATININE 1.34 mg/dL (0.55-1.02); Calcium 9.8 mg/dL (8.5-10.1); Chloride 98 mmol/L (98-107); Estimated GFR 39.82 (mL/min/1.73m2); Glucose 80 mg/dL (74-106); Magnesium 1.8 mg/dL (1.8-2.4); Potassium 3.2 mmol/L (3.5-5.1); Sodium 136 mmol/L (136-145); Total Protein 7.4 g/dL (6.4-8.2)
[2019-07-02 12:49] LABS: CA 125 5 U/mL (<30)
== END 2019-07-01 12:16 ==
PROVIDERS: PCP Family Medicine; Visit Provider Obstetrics & Gynecology Gynecologic Oncology
DX: C56.1 Malignant neoplasm of right ovary (principal); E11.65 Type 2 diabetes mellitus with hyperglycemia
CPT/HCPCS: 36415; 80053; 86304; 83735; 85025; 85610; 85730

== ENCOUNTER 2019-08-22 16:22 | Outpatient (RCR) | payer MEDICARE, SELFPAY | END 2019-09-20 23:59 | disposition home or self-care (01) | LOC: CR 16:22 | PROVIDERS: PCP Family Medicine; Visit Provider Family Medicine | DX: R69 Illness, unspecified (principal) ==

== ENCOUNTER 2019-08-27 08:14 | Outpatient (CLI) | payer MEDICARE, SELFPAY ==
[2019-08-27 22:51] LABS: COVID-19 RT-PCR UVMMC Result Negative (Negative)
== END 2019-08-27 08:34 ==
PROVIDERS: PCP Family Medicine; Visit Provider Family Medicine
DX: Z11.59 Encounter for screening for other viral diseases (principal)
CPT/HCPCS: U0003

== ENCOUNTER 2019-08-29 10:30 | Outpatient (RCR) | payer MEDICARE, SELFPAY ==
[2019-08-29] MEDS: Heparin 500 UNITS/5 ML SYRINGE ×2 (10:53→10:54)
[2019-08-29] MEDS: Normal Saline Flush 10 ML SYR IVP (10:54)
[2019-08-29 11:37] LABS: Hemoglobin A1C 6.9 % (3.8-5.6)
[2019-08-29 11:46] LABS: ALT 35 U/L (14-59); AST 25 U/L (15-37); Alkaline Phosphatase 149 U/L (46-116); Anion Gap 10.3 mmol/L (3-11); BUN 37 mg/dL (7-18); Bilirubin, Total 0.4 mg/dL (0.2-1.0); CO2 26.7 mmol/L (21.0-32.0); CREATININE 1.84 mg/dL (0.55-1.02); Calcium 9.4 mg/dL (8.5-10.1); Chloride 101 mmol/L (98-107); Estimated GFR 27.62 (mL/min/1.73m2); Glucose 120 mg/dL (74-106); Potassium 4.1 mmol/L (3.5-5.1); Sodium 138 mmol/L (136-145); Total Protein 7.8 g/dL (6.4-8.2)
== END 2019-09-20 23:59 | disposition home or self-care (01) ==
LOC: INF 10:30
PROVIDERS: PCP Family Medicine; Visit Provider Family Medicine
DX: C56.9 Malignant neoplasm of unspecified ovary (principal); E11.9 Type 2 diabetes mellitus without complications; Z45.2 Encounter for adjustment and management of vascular access device
CPT/HCPCS: 36591; 80053; 83036

== ENCOUNTER 2019-10-01 02:48 | Outpatient (CLI) | payer MEDICARE, SELFPAY ==
[2019-10-01 12:18] LABS: ALT 31 U/L (14-59); AST 20 U/L (15-37); Alkaline Phosphatase 158 U/L (46-116); Anion Gap 10.3 mmol/L (3-11); BUN 37 mg/dL (7-18); Bilirubin, Total 0.4 mg/dL (0.2-1.0); CO2 26.7 mmol/L (21.0-32.0); CREATININE 1.74 mg/dL (0.55-1.02); Calcium 9.7 mg/dL (8.5-10.1); Chloride 102 mmol/L (98-107); Estimated GFR 29.46 (mL/min/1.73m2); Glucose 181 mg/dL (74-106); Sodium 139 mmol/L (136-145); Total Protein 7.7 g/dL (6.4-8.2)
== END 2019-10-01 03:08 ==
PROVIDERS: PCP Family Medicine; Visit Provider Obstetrics & Gynecology Gynecologic Oncology
DX: C56.1 Malignant neoplasm of right ovary (principal)
CPT/HCPCS: 36415; 80053

== ENCOUNTER 2019-10-22 04:43 | Outpatient (CLI) | payer MEDICARE, SELFPAY ==
[2019-10-22 12:28] LABS: Abs Immature Grans 0.02 10^3/uL (0.0-0.06); Absolute Basophil Count 0.05 10^3/uL (0.0-0.2); Absolute Lymphocyte Count 1.26 10^3/uL (1.2-3.4); Absolute Monocyte Count 0.55 10^3/uL (0.1-0.8); Absolute Neutrophil Count 4.57 10^3/uL (1.2-6.7); Basophils % 0.7; Eosinophils % 4.4; HCT 35.7 % (36.0-46.0); HGB 11.8 g/dL (11.2-15.7); Immature Grans % 0.3; Lymphocytes % 18.7; MCH 30.3 pg (27.0-33.0); MCHC 33.1 % (32.0-36.0); MCV 91.8 fL (80-95); Monocytes % 8.1; Neutrophils % 67.8; Nucleated RBC 0 %; Platelet Count 308 10^3/uL (130-400); RBC 3.89 10^6/uL (3.93-5.22); RDW 13.3 % (11.7-14.6); RDW-SD 44.7 fL; WBC 6.75 10^3/uL (4.4-10.8)
[2019-10-22 12:42] LABS: ALT 27 U/L (14-59); AST 20 U/L (15-37); Albumin 3.7 g/dL (3.4-5.0); Alkaline Phosphatase 143 U/L (46-116); Anion Gap 10.3 mmol/L (3-11); BUN 42 mg/dL (7-18); Bilirubin, Total 0.3 mg/dL (0.2-1.0); CO2 27.7 mmol/L (21.0-32.0); CREATININE 1.92 mg/dL (0.55-1.02); Calcium 9.6 mg/dL (8.5-10.1); Chloride 101 mmol/L (98-107); Estimated GFR 26.29 (mL/min/1.73m2); Glucose 152 mg/dL (74-106); Potassium 4.3 mmol/L (3.5-5.1); Sodium 139 mmol/L (136-145); Total Protein 7.7 g/dL (6.4-8.2)
== END 2019-10-22 05:03 ==
PROVIDERS: PCP Family Medicine; Visit Provider Obstetrics & Gynecology Gynecologic Oncology
DX: C56.1 Malignant neoplasm of right ovary (principal)
CPT/HCPCS: 36415; 80053; 85025

== ENCOUNTER 2019-10-29 04:21 | Outpatient (CLI) | payer MEDICARE, SELFPAY ==
[2019-10-29 11:59] LABS: Abs Immature Grans 0.01 10^3/uL (0.0-0.06); Absolute Basophil Count 0.04 10^3/uL (0.0-0.2); Absolute Eosinophil Count 0.23 10^3/uL (0.0-0.7); Absolute Lymphocyte Count 1.04 10^3/uL (1.2-3.4); Absolute Monocyte Count 0.38 10^3/uL (0.1-0.8); Absolute Neutrophil Count 2.93 10^3/uL (1.2-6.7); Basophils % 0.9; HCT 34.6 % (36.0-46.0); HGB 11.5 g/dL (11.2-15.7); Immature Grans % 0.2; Lymphocytes % 22.5; MCH 30.1 pg (27.0-33.0); MCHC 33.2 % (32.0-36.0); MCV 90.6 fL (80-95); MPV 9.3 fL (8.0-11.0); Monocytes % 8.2; Neutrophils % 63.2; Nucleated RBC 0 %; Platelet Count 321 10^3/uL (130-400); RBC 3.82 10^6/uL (3.93-5.22); RDW 13.5 % (11.7-14.6); RDW-SD 44.6 fL; WBC 4.63 10^3/uL (4.4-10.8)
[2019-10-29 12:48] LABS: ALT 29 U/L (14-59); AST 18 U/L (15-37); Albumin 3.8 g/dL (3.4-5.0); Alkaline Phosphatase 137 U/L (46-116); BUN 28 mg/dL (7-18); Bilirubin, Total 0.4 mg/dL (0.2-1.0); CREATININE 1.48 mg/dL (0.55-1.02); Calcium 9.4 mg/dL (8.5-10.1); Chloride 103 mmol/L (98-107); Estimated GFR 35.51 (mL/min/1.73m2); Glucose 100 mg/dL (74-106); Potassium 4.4 mmol/L (3.5-5.1); Sodium 139 mmol/L (136-145); Total Protein 7.2 g/dL (6.4-8.2)
== END 2019-10-29 04:41 ==
PROVIDERS: PCP Family Medicine; Visit Provider Obstetrics & Gynecology Gynecologic Oncology
DX: C56.1 Malignant neoplasm of right ovary (principal)
CPT/HCPCS: 36415; 80053; 85025

== ENCOUNTER 2019-11-20 03:43 | Outpatient (RCR) | payer MEDICARE, SELFPAY ==
[2019-11-15] MEDS: cefTRIAXone 2 GM/50 ML BAG IVPB (13:23)
[2019-11-15] MEDS: Normal Saline Flush 10 ML SYR IVP (13:23)
[2019-11-15] MEDS: Heparin 500 UNITS/5 ML SYRINGE IV (14:04)
[2019-11-16] MEDS: cefTRIAXone 2 GM/50 ML BAG IVPB (12:56)
[2019-11-16] MEDS: Normal Saline Flush 10 ML SYR IVP (13:03)
[2019-11-17] MEDS: Normal Saline Flush 10 ML SYR IVP (13:05)
[2019-11-17] MEDS: cefTRIAXone 2 GM/50 ML BAG IVPB (13:05)
[2019-11-18] MEDS: Normal Saline Flush 10 ML SYR IVP (13:29)
[2019-11-18] MEDS: Heparin 500 UNITS/5 ML SYRINGE IV (13:29)
[2019-11-18] MEDS: cefTRIAXone 2 GM/50 ML BAG IVPB (13:29)
[2019-11-18 13:30] LABS: Basophils % 0.9; Eosinophils % 5.9; HCT 34.6 % (36.0-46.0); HGB 11.2 g/dL (11.2-15.7); Lymphocytes % 32.5; MCH 29.6 pg (27.0-33.0); MCHC 32.4 % (32.0-36.0); MCV 91.3 fL (80-95); Monocytes % 11.6; Neutrophils % 48.7; Platelet Count 335 10^3/uL (130-400); RBC 3.79 10^6/uL (3.93-5.22); RDW 13.3 % (11.7-14.6); RDW-SD 44.1 fL; WBC 4.55 10^3/uL (4.4-10.8)
[2019-11-18 13:31] LABS: Abs Immature Grans 0.02 10^3/uL (0.0-0.06); Absolute Basophil Count 0.04 10^3/uL (0.0-0.2); Absolute Eosinophil Count 0.27 10^3/uL (0.0-0.7); Absolute Lymphocyte Count 1.48 10^3/uL (1.2-3.4); Absolute Monocyte Count 0.53 10^3/uL (0.1-0.8); Absolute Neutrophil Count 2.21 10^3/uL (1.2-6.7); Immature Grans % 0.4; Nucleated RBC 0 %
[2019-11-18 13:45] LABS: ALT 25 U/L (14-59); AST 17 U/L (15-37); Albumin 3.4 g/dL (3.4-5.0); Alkaline Phosphatase 132 U/L (46-116); Anion Gap 8.7 mmol/L (3-11); BUN 31 mg/dL (7-18); Bilirubin, Total 0.3 mg/dL (0.2-1.0); C-Reactive Protein 0.71 mg/dL (0.0-0.3); CO2 27.3 mmol/L (21.0-32.0); CREATININE 1.46 mg/dL (0.55-1.02); Calcium 9.4 mg/dL (8.5-10.1); Chloride 103 mmol/L (98-107); Estimated GFR 36.07 (mL/min/1.73m2); Glucose 184 mg/dL (74-106); Potassium 3.9 mmol/L (3.5-5.1); Sodium 139 mmol/L (136-145); Total Protein 7.6 g/dL (6.4-8.2)
[2019-11-19] MEDS: cefTRIAXone 2 GM/50 ML BAG IVPB (13:10)
[2019-11-19] MEDS: Normal Saline Flush 10 ML SYR IVP (13:10)
[2019-11-20] MEDS: Normal Saline Flush 10 ML SYR IVP (13:22)
[2019-11-20] MEDS: cefTRIAXone 2 GM/50 ML BAG IVPB (13:22)
[2019-11-20] MEDS: Heparin 500 UNITS/5 ML SYRINGE IV (14:00)
== END 2019-11-20 23:59 | disposition home or self-care (01) ==
LOC: INF 03:43
PROVIDERS: Internal Medicine Infectious Disease; PCP Family Medicine; Visit Provider Nurse Practitioner Family
DX: M86.8X4 Other osteomyelitis, hand (principal); B95.61 Methicillin susceptible Staphylococcus aureus infection as the cause of diseases classified elsewhere; Z79.2 Long term (current) use of antibiotics
CPT/HCPCS: 36591; 80053; 96365; 99211; 85025; 86140

== ENCOUNTER 2019-12-21 00:06 | Outpatient (RCR) | payer MEDICARE, SELFPAY ==
[2019-11-21] MEDS: Normal Saline Flush 10 ML SYR IVP (13:18)
[2019-11-21] MEDS: cefTRIAXone 2 GM/50 ML BAG IVPB (13:18)
[2019-11-22] MEDS: cefTRIAXone 2 GM/50 ML BAG IVPB (13:14)
[2019-11-22] MEDS: Normal Saline Flush 10 ML SYR IVP (13:14)
[2019-11-23] MEDS: Normal Saline Flush 10 ML SYR IVP (13:23)
[2019-11-23] MEDS: cefTRIAXone 2 GM/50 ML BAG IVPB (13:24)
[2019-11-24] MEDS: Normal Saline Flush 10 ML SYR IVP (13:23)
[2019-11-24] MEDS: cefTRIAXone 2 GM/50 ML BAG IVPB (13:25)
[2019-11-25] MEDS: cefTRIAXone 2 GM/50 ML BAG IVPB (13:26)
[2019-11-25] MEDS: Normal Saline Flush 10 ML SYR IVP (13:27)
[2019-11-25] MEDS: Heparin 500 UNITS/5 ML SYRINGE IVP (13:28)
[2019-11-25 13:49] LABS: Abs Immature Grans 0.01 10^3/uL (0.0-0.06); Absolute Basophil Count 0.05 10^3/uL (0.0-0.2); Absolute Eosinophil Count 0.33 10^3/uL (0.0-0.7); Absolute Lymphocyte Count 1.54 10^3/uL (1.2-3.4); Absolute Monocyte Count 0.89 10^3/uL (0.1-0.8); Absolute Neutrophil Count 2.77 10^3/uL (1.2-6.7); Basophils % 0.9; Eosinophils % 5.9; HCT 35.7 % (36.0-46.0); HGB 11.6 g/dL (11.2-15.7); Immature Grans % 0.2; Lymphocytes % 27.5; MCH 29.7 pg (27.0-33.0); MCHC 32.5 % (32.0-36.0); MCV 91.5 fL (80-95); MPV 9.4 fL (8.0-11.0); Monocytes % 15.9; Neutrophils % 49.6; Nucleated RBC 0 %; Platelet Count 321 10^3/uL (130-400); RDW 13.6 % (11.7-14.6); RDW-SD 45.1 fL; WBC 5.59 10^3/uL (4.4-10.8)
[2019-11-25 14:04] LABS: ALT 33 U/L (14-59); AST 20 U/L (15-37); Albumin 3.6 g/dL (3.4-5.0); Alkaline Phosphatase 143 U/L (46-116); Anion Gap 9.7 mmol/L (3-11); BUN 33 mg/dL (7-18); Bilirubin, Total 0.4 mg/dL (0.2-1.0); C-Reactive Protein 0.62 mg/dL (0.0-0.3); CO2 28.3 mmol/L (21.0-32.0); CREATININE 1.69 mg/dL (0.55-1.02); Calcium 9.3 mg/dL (8.5-10.1); Chloride 99 mmol/L (98-107); Estimated GFR 30.47 (mL/min/1.73m2); Glucose 182 mg/dL (74-106); Potassium 4.1 mmol/L (3.5-5.1); Sodium 137 mmol/L (136-145); Total Protein 7.5 g/dL (6.4-8.2)
[2019-11-26] MEDS: cefTRIAXone 2 GM/50 ML BAG IVPB (10:18)
[2019-11-26] MEDS: Normal Saline Flush 10 ML SYR IVP (10:18)
[2019-11-27] MEDS: Heparin 500 UNITS/5 ML SYRINGE IVP (13:52)
[2019-11-27] MEDS: Normal Saline Flush 10 ML SYR IVP (13:52)
[2019-11-29] MEDS: cefTRIAXone 2 GM/50 ML BAG IVPB (13:21)
[2019-11-29] MEDS: Normal Saline Flush 10 ML SYR IVP (13:21)
[2019-11-30] MEDS: Normal Saline Flush 10 ML SYR IVP (13:15)
[2019-11-30] MEDS: cefTRIAXone 2 GM/50 ML BAG IVPB (13:15)
[2019-12-01] MEDS: cefTRIAXone 2 GM/50 ML BAG IVPB (13:25)
[2019-12-01] MEDS: Normal Saline Flush 10 ML SYR IVP (13:25)
[2019-12-02] MEDS: cefTRIAXone 2 GM/50 ML BAG IVPB (14:00)
[2019-12-02] MEDS: Normal Saline Flush 10 ML SYR IVP (14:01)
[2019-12-02] MEDS: Heparin 500 UNITS/5 ML SYRINGE IVP (14:30)
[2019-12-02 14:57] LABS: Abs Immature Grans 0.01 10^3/uL (0.0-0.06); Absolute Basophil Count 0.03 10^3/uL (0.0-0.2); Absolute Eosinophil Count 0.42 10^3/uL (0.0-0.7); Absolute Lymphocyte Count 0.94 10^3/uL (1.2-3.4); Absolute Monocyte Count 0.48 10^3/uL (0.1-0.8); Absolute Neutrophil Count 1.81 10^3/uL (1.2-6.7); Basophils % 0.8; Eosinophils % 11.4; HCT 33.3 % (36.0-46.0); HGB 10.9 g/dL (11.2-15.7); Immature Grans % 0.3; Lymphocytes % 25.5; MCH 29.6 pg (27.0-33.0); MCHC 32.7 % (32.0-36.0); MCV 90.5 fL (80-95); MPV 9.3 fL (8.0-11.0); Nucleated RBC 0 %; Platelet Count 221 10^3/uL (130-400); RBC 3.68 10^6/uL (3.93-5.22); RDW 13.8 % (11.7-14.6); WBC 3.69 10^3/uL (4.4-10.8)
[2019-12-02 15:06] LABS: Anion Gap 8.8 mmol/L (3-11); BUN 40 mg/dL (7-18); C-Reactive Protein 0.28 mg/dL (0.0-0.3); CO2 26.2 mmol/L (21.0-32.0); CREATININE 1.62 mg/dL (0.55-1.02); Calcium 9.1 mg/dL (8.5-10.1); Chloride 102 mmol/L (98-107); Estimated GFR 31.99 (mL/min/1.73m2); Glucose 234 mg/dL (74-106); Potassium 4.1 mmol/L (3.5-5.1); Sodium 137 mmol/L (136-145)
[2019-12-03] MEDS: Alteplase 2 MG VIAL IJ (13:37)
[2019-12-03] MEDS: Normal Saline Flush 10 ML SYR IVP ×2 (13:37→14:07)
[2019-12-03] MEDS: Water,Injection,Sterile 10 ML VIAL IJ (13:37)
[2019-12-03] MEDS: cefTRIAXone 2 GM/50 ML BAG IVPB (14:07)
[2019-12-03] MEDS: Heparin 500 UNITS/5 ML SYRINGE IVP (14:07)
[2019-12-04 09:51] LABS: ALT 32 U/L (14-59); AST 17 U/L (15-37); Albumin 3.5 g/dL (3.4-5.0); Alkaline Phosphatase 133 U/L (46-116); Bilirubin, Total 0.2 mg/dL (0.2-1.0); Total Protein 7.2 g/dL (6.4-8.2)
[2019-12-04] MEDS: cefTRIAXone 2 GM/50 ML BAG IVPB (13:20)
[2019-12-04] MEDS: Normal Saline Flush 10 ML SYR IVP (13:21)
[2019-12-05] MEDS: cefTRIAXone 2 GM/50 ML BAG IVPB (13:13)
[2019-12-05] MEDS: Normal Saline Flush 10 ML SYR IVP (13:16)
[2019-12-05] MEDS: Heparin 500 UNITS/5 ML SYRINGE IVP (13:52)
[2019-12-06] MEDS: Normal Saline Flush 10 ML SYR IVP (13:19)
[2019-12-06] MEDS: cefTRIAXone 2 GM/50 ML BAG IVPB (13:19)
[2019-12-07] MEDS: Normal Saline Flush 10 ML SYR IVP (13:45)
[2019-12-07] MEDS: cefTRIAXone 2 GM/50 ML BAG IVPB (13:45)
[2019-12-07] MEDS: Heparin 500 UNITS/5 ML SYRINGE IVP (13:46)
[2019-12-08] MEDS: cefTRIAXone 2 GM/50 ML BAG IVPB (13:53)
[2019-12-08] MEDS: Normal Saline Flush 10 ML SYR IVP (13:54)
[2019-12-09] MEDS: Normal Saline Flush 10 ML SYR IVP (13:14)
[2019-12-09] MEDS: cefTRIAXone 2 GM/50 ML BAG IVPB (13:14)
[2019-12-09] MEDS: Heparin 500 UNITS/5 ML SYRINGE IVP (13:15)
[2019-12-09 13:27] LABS: Abs Immature Grans 0.01 10^3/uL (0.0-0.06); Absolute Basophil Count 0.04 10^3/uL (0.0-0.2); Absolute Eosinophil Count 0.43 10^3/uL (0.0-0.7); Absolute Lymphocyte Count 1.13 10^3/uL (1.2-3.4); Absolute Monocyte Count 0.51 10^3/uL (0.1-0.8); Absolute Neutrophil Count 2.14 10^3/uL (1.2-6.7); Basophils % 0.9; Eosinophils % 10.1; HCT 35.8 % (36.0-46.0); HGB 11.7 g/dL (11.2-15.7); Immature Grans % 0.2; Lymphocytes % 26.5; MCH 29.6 pg (27.0-33.0); MCHC 32.7 % (32.0-36.0); MCV 90.6 fL (80-95); MPV 9.4 fL (8.0-11.0); Neutrophils % 50.3; Nucleated RBC 0 %; Platelet Count 245 10^3/uL (130-400); RBC 3.95 10^6/uL (3.93-5.22); RDW 13.8 % (11.7-14.6); RDW-SD 45.1 fL; WBC 4.26 10^3/uL (4.4-10.8)
[2019-12-09 13:38] LABS: ALT 35 U/L (14-59); AST 22 U/L (15-37); Albumin 3.7 g/dL (3.4-5.0); Alkaline Phosphatase 154 U/L (46-116); Anion Gap 9.6 mmol/L (3-11); BUN 43 mg/dL (7-18); Bilirubin, Total 0.5 mg/dL (0.2-1.0); C-Reactive Protein 1.18 mg/dL (0.0-0.3); CO2 27.4 mmol/L (21.0-32.0); CREATININE 1.96 mg/dL (0.55-1.02); Calcium 9.4 mg/dL (8.5-10.1); Chloride 99 mmol/L (98-107); Estimated GFR 25.68 (mL/min/1.73m2); Glucose 210 mg/dL (74-106); Potassium 4.6 mmol/L (3.5-5.1); Sodium 136 mmol/L (136-145); Total Protein 7.8 g/dL (6.4-8.2)
[2019-12-10] MEDS: Normal Saline Flush 10 ML SYR IVP (08:41)
[2019-12-10] MEDS: cefTRIAXone 2 GM/50 ML BAG IVPB (08:41)
[2019-12-11] MEDS: Normal Saline Flush 10 ML SYR IVP (13:07)
[2019-12-11] MEDS: cefTRIAXone 2 GM/50 ML BAG IVPB (13:12)
[2019-12-12] MEDS: Normal Saline Flush 10 ML SYR IVP (13:08)
[2019-12-12] MEDS: cefTRIAXone 2 GM/50 ML BAG IVPB (13:08)
[2019-12-13] MEDS: cefTRIAXone 2 GM/50 ML BAG IVPB (13:09)
[2019-12-13] MEDS: Normal Saline Flush 10 ML SYR IVP (13:13)
[2019-12-14] MEDS: Normal Saline Flush 10 ML SYR IVP (13:43)
[2019-12-14] MEDS: cefTRIAXone 2 GM/50 ML BAG IVPB (14:06)
[2019-12-15] MEDS: cefTRIAXone 2 GM/50 ML BAG IVPB (13:37)
[2019-12-15] MEDS: Normal Saline Flush 10 ML SYR IVP (13:42)
[2019-12-16] MEDS: cefTRIAXone 2 GM/50 ML BAG IVPB (13:41)
[2019-12-16] MEDS: Normal Saline Flush 10 ML SYR IVP (13:42)
[2019-12-16] MEDS: Heparin 500 UNITS/5 ML SYRINGE IVP (13:42)
[2019-12-16 13:57] LABS: Abs Immature Grans 0.01 10^3/uL (0.0-0.06); Absolute Basophil Count 0.02 10^3/uL (0.0-0.2); Absolute Eosinophil Count 0.25 10^3/uL (0.0-0.7); Absolute Lymphocyte Count 1.05 10^3/uL (1.2-3.4); Absolute Monocyte Count 0.29 10^3/uL (0.1-0.8); Absolute Neutrophil Count 1.95 10^3/uL (1.2-6.7); Basophils % 0.6; HCT 36.3 % (36.0-46.0); HGB 11.9 g/dL (11.2-15.7); Immature Grans % 0.3; Lymphocytes % 29.4; MCH 29.6 pg (27.0-33.0); MCHC 32.8 % (32.0-36.0); MCV 90.3 fL (80-95); Monocytes % 8.1; Neutrophils % 54.6; Nucleated RBC 0 %; Platelet Count 293 10^3/uL (130-400); RBC 4.02 10^6/uL (3.93-5.22); RDW 13.8 % (11.7-14.6); RDW-SD 45.5 fL; WBC 3.57 10^3/uL (4.4-10.8)
[2019-12-16 14:09] LABS: ALT 32 U/L (14-59); AST 23 U/L (15-37); Albumin 3.8 g/dL (3.4-5.0); Alkaline Phosphatase 155 U/L (46-116); BUN 46 mg/dL (7-18); Bilirubin, Total 0.5 mg/dL (0.2-1.0); C-Reactive Protein 0.69 mg/dL (0.0-0.3); Calcium 9.8 mg/dL (8.5-10.1); Chloride 99 mmol/L (98-107); Estimated GFR 26.61 (mL/min/1.73m2); Glucose 196 mg/dL (74-106); Potassium 4.7 mmol/L (3.5-5.1); Sodium 135 mmol/L (136-145); Total Protein 8.1 g/dL (6.4-8.2)
[2019-12-17] MEDS: cefTRIAXone 2 GM/50 ML BAG IVPB (13:16)
[2019-12-17] MEDS: Normal Saline Flush 10 ML SYR IVP (13:16)
[2019-12-18] MEDS: cefTRIAXone 2 GM/50 ML BAG IVPB (13:23)
[2019-12-18] MEDS: Normal Saline Flush 10 ML SYR IVP (13:24)
[2019-12-19] MEDS: cefTRIAXone 2 GM/50 ML BAG IVPB (13:13)
[2019-12-19] MEDS: Normal Saline Flush 10 ML SYR IVP (13:13)
[2019-12-20] MEDS: Normal Saline Flush 10 ML SYR IVP (13:18)
[2019-12-20] MEDS: cefTRIAXone 2 GM/50 ML BAG IVPB (13:18)
[2019-12-21] MEDS: cefTRIAXone 2 GM/50 ML BAG IVPB (13:30)
[2019-12-21] MEDS: Normal Saline Flush 10 ML SYR IVP (14:10)
== END 2019-12-21 23:59 | disposition home or self-care (01) ==
LOC: INF 00:06
PROVIDERS: Internal Medicine Infectious Disease; PCP Family Medicine; Visit Provider Nurse Practitioner Family
DX: M86.8X4 Other osteomyelitis, hand (principal); B95.61 Methicillin susceptible Staphylococcus aureus infection as the cause of diseases classified elsewhere
CPT/HCPCS: 36591; 80048; 80053; 96365; 96523; 99211; 85025; 86140; J2997

== ENCOUNTER 2019-12-22 00:15 | Outpatient (RCR) | payer MEDICARE, SELFPAY ==
[2019-12-22] MEDS: cefTRIAXone 2 GM/50 ML BAG IVPB (13:36)
[2019-12-22] MEDS: Normal Saline Flush 10 ML SYR IVP (13:37)
[2019-12-22] MEDS: Heparin 500 UNITS/5 ML SYRINGE IVP (14:10)
[2020-01-14] MEDS: Heparin 500 UNITS/5 ML SYRINGE (12:29)
[2020-01-14] MEDS: Normal Saline Flush 10 ML SYR IVP (12:30)
== END 2020-01-20 23:59 | disposition home or self-care (01) ==
LOC: INF 00:15
PROVIDERS: PCP Family Medicine; Visit Provider Obstetrics & Gynecology Gynecologic Oncology
DX: M86.141 Other acute osteomyelitis, right hand (principal); B95.61 Methicillin susceptible Staphylococcus aureus infection as the cause of diseases classified elsewhere; Z79.2 Long term (current) use of antibiotics; Z45.2 Encounter for adjustment and management of vascular access device
CPT/HCPCS: 36591; 96365; 96523

== ENCOUNTER 2020-01-02 01:54 | Outpatient (RCR) | payer MEDICARE, SELFPAY ==
[2020-01-02 13:30] LABS: Abs Immature Grans 0.01 10^3/uL (0.0-0.06); Absolute Basophil Count 0.04 10^3/uL (0.0-0.2); Absolute Eosinophil Count 0.17 10^3/uL (0.0-0.7); Absolute Lymphocyte Count 0.99 10^3/uL (1.2-3.4); Absolute Monocyte Count 0.63 10^3/uL (0.1-0.8); Absolute Neutrophil Count 1.02 10^3/uL (1.2-6.7); Basophils % 1.4; Eosinophils % 5.9; HCT 36.3 % (36.0-46.0); Immature Grans % 0.3; Lymphocytes % 34.6; MCH 29.9 pg (27.0-33.0); MCHC 33.1 % (32.0-36.0); MCV 90.3 fL (80-95); MPV 9.5 fL (8.0-11.0); Neutrophils % 35.8; Nucleated RBC 0 %; Platelet Count 272 10^3/uL (130-400); RBC 4.02 10^6/uL (3.93-5.22); RDW 14.3 % (11.7-14.6); RDW-SD 47.1 fL; WBC 2.86 10^3/uL (4.4-10.8)
[2020-01-02 13:54] LABS: ALT 55 U/L (14-59); AST 28 U/L (15-37); Albumin 3.9 g/dL (3.4-5.0); Alkaline Phosphatase 169 U/L (46-116); Anion Gap 11.8 mmol/L (3-11); BUN 55 mg/dL (7-18); Bilirubin, Total 0.3 mg/dL (0.2-1.0); CO2 21.2 mmol/L (21.0-32.0); CREATININE 3.03 mg/dL (0.55-1.02); Calcium 9.1 mg/dL (8.5-10.1); Chloride 101 mmol/L (98-107); Estimated GFR 15.53 (mL/min/1.73m2); Glucose 190 mg/dL (74-106); Potassium 5.5 mmol/L (3.5-5.1); Sodium 134 mmol/L (136-145); Total Protein 8.2 g/dL (6.4-8.2)
[2020-01-03 14:33] LABS: Hemoglobin A1C 7.9 % (<5.7)
[2020-01-06 16:03] LABS: CA 125 7 U/mL (<30)
== END 2020-01-20 23:59 | disposition home or self-care (01) ==
LOC: INF 01:54
PROVIDERS: PCP Family Medicine; Visit Provider Obstetrics & Gynecology Gynecologic Oncology
DX: C56.9 Malignant neoplasm of unspecified ovary (principal); E11.9 Type 2 diabetes mellitus without complications; Z45.2 Encounter for adjustment and management of vascular access device
CPT/HCPCS: 36591; 80053; 86304; 83036; 85025

== ENCOUNTER 2020-01-06 10:13 | Outpatient (CLI) | payer MEDICARE, SELFPAY ==
[2020-01-06 17:04] LABS: HCT 34.8 % (36.0-46.0); HGB 11.5 g/dL (11.2-15.7); MCH 29.5 pg (27.0-33.0); MCV 89.2 fL (80-95); MPV 9.4 fL (8.0-11.0); RDW 14.1 % (11.7-14.6); RDW-SD 45.8 fL
[2020-01-06 17:05] LABS: Platelet Count 160 10^3/uL (130-400)
[2020-01-06 17:51] LABS: ALT 43 U/L (14-59); AST 22 U/L (15-37); Alkaline Phosphatase 161 U/L (46-116); Anion Gap 11.3 mmol/L (3-11); BUN 35 mg/dL (7-18); Bilirubin, Total 0.3 mg/dL (0.2-1.0); CO2 24.7 mmol/L (21.0-32.0); CREATININE 2.24 mg/dL (0.55-1.02); Chloride 103 mmol/L (98-107); Estimated GFR 22.01 (mL/min/1.73m2); Glucose 122 mg/dL (74-106); Potassium 4.3 mmol/L (3.5-5.1); Sodium 139 mmol/L (136-145); Total Protein 7.5 g/dL (6.4-8.2)
[2020-01-07 07:38] LABS: Abs Immature Grans 0.01 10^3/uL (0.0-0.06)
[2020-01-07 09:56] LABS: Absolute Lymphocyte Count 0.62 10^3/uL (1.2-3.4); Absolute Neutrophil Count 1.04 10^3/uL (1.2-6.7); Atypical Lymphocytes % 4; Bands % 2
[2020-01-07 09:57] LABS: Absolute Basophil Count 0.03 10^3/uL (0.0-0.2); Absolute Eosinophil Count 0.31 10^3/uL (0.0-0.7); Diff Comment Manual Differential; RBC Morphology Normal
== END 2020-01-06 10:33 ==
PROVIDERS: PCP Family Medicine; Visit Provider Obstetrics & Gynecology Gynecologic Oncology
DX: E87.5 Hyperkalemia; D72.9 Disorder of white blood cells, unspecified
CPT/HCPCS: 36415; 80053; 85027; 85007

== ENCOUNTER 2020-01-14 11:28 | Outpatient (RCR) | payer MEDICARE, SELFPAY ==
[2020-01-14 12:33] LABS: Abs Immature Grans 0.01 10^3/uL (0.0-0.06); Absolute Basophil Count 0.03 10^3/uL (0.0-0.2); Absolute Eosinophil Count 0.26 10^3/uL (0.0-0.7); Absolute Lymphocyte Count 1.29 10^3/uL (1.2-3.4); Absolute Monocyte Count 0.62 10^3/uL (0.1-0.8); Absolute Neutrophil Count 1.09 10^3/uL (1.2-6.7); Basophils % 0.9; Eosinophils % 7.9; HCT 33.3 % (36.0-46.0); HGB 10.9 g/dL (11.2-15.7); Immature Grans % 0.3; Lymphocytes % 39.1; MCH 29.5 pg (27.0-33.0); MCHC 32.7 % (32.0-36.0); MCV 90.2 fL (80-95); MPV 9.6 fL (8.0-11.0); Monocytes % 18.8; Nucleated RBC 0 %; Platelet Count 139 10^3/uL (130-400); RBC 3.69 10^6/uL (3.93-5.22); RDW 14.2 % (11.7-14.6); RDW-SD 46.5 fL
[2020-01-14 12:45] LABS: ALT 114 U/L (14-59); AST 34 U/L (15-37); Albumin 3.7 g/dL (3.4-5.0); Alkaline Phosphatase 204 U/L (46-116); Anion Gap 9.4 mmol/L (3-11); BUN 40 mg/dL (7-18); Bilirubin, Total 0.3 mg/dL (0.2-1.0); CO2 25.6 mmol/L (21.0-32.0); CREATININE 2.15 mg/dL (0.55-1.02); Chloride 102 mmol/L (98-107); Estimated GFR 23.08 (mL/min/1.73m2); Glucose 115 mg/dL (74-106); Potassium 3.8 mmol/L (3.5-5.1); Sodium 137 mmol/L (136-145); Total Protein 7.7 g/dL (6.4-8.2)
== END 2020-01-20 23:59 | disposition home or self-care (01) ==
LOC: INF 11:28
PROVIDERS: PCP Family Medicine; Visit Provider Obstetrics & Gynecology Gynecologic Oncology
DX: M86.141 Other acute osteomyelitis, right hand (principal); B95.61 Methicillin susceptible Staphylococcus aureus infection as the cause of diseases classified elsewhere; C56.9 Malignant neoplasm of unspecified ovary; Z79.2 Long term (current) use of antibiotics; Z45.2 Encounter for adjustment and management of vascular access device
CPT/HCPCS: 36591; 80053; 85025

== ENCOUNTER 2020-02-07 10:18 | Outpatient (CLI) | payer MEDICARE, SELFPAY ==
--- NOTE | 2020-02-07 13:45 | DI.US_ITS ---
EXAM: US LOWER EXTREMITY VENOUS LT CLINICAL HISTORY: lower extremity redness and swelling, M79.89, R23.8 TECHNIQUE: Left lower extremity venous ultrasound performed using grayscale, color-flow, and spectra l Doppler analysis. COMPARISON: No exams were available for comparison FINDINGS: The left common femoral, femoral and popliteal veins demonstrate normal compressibility, augmentation , and color Doppler. The posterior tibial veins are patent. The saphenofemoral junction is unremarka ble. There is no evidence of a Maher cyst. There is mild soft tissue edema. IMPRESSION: No DVT. DATA REPOSITORY:
--- NOTE | 2020-02-07 16:33 | DI.VRAD_ITS ---
PROCEDURE INFORMATION: Exam: US Duplex Left Lower Extremity Veins, Limited Exam date and time: 02/07/2020 3:30 PM Age: 64 years old Clinical indication: Pain; Leg, lower; Left TECHNIQUE: Imaging protocol: Real-time Duplex ultrasound of the Left Lower Extremity with 2-D moore scale, color Doppler flow and spectral waveform analysis with image documentation. Limited exam focused on the left lower extremity veins. COMPARISON: No relevant prior studies available. FINDINGS: Left deep veins: Unremarkable. The common femoral, femoral, proximal profunda femoral and popliteal veins are patent without thrombus. Normal Doppler waveforms. Normal compressibility and/or augmentation response. Left superficial veins: Unremarkable. Saphenofemoral junction is patent without thrombus. Soft tissues: Mild soft tissue edema. IMPRESSION: No DVT. Mild soft tissue edema. Dictated and Authenticated by: Mc Gibson MD. Ordering:JOSE Vaughn MD
== END 2020-02-07 10:38 ==
PROVIDERS: PCP Family Medicine; Visit Provider Physician Assistant
DX: M79.89 Other specified soft tissue disorders (principal); R23.8 Other skin changes
CPT/HCPCS: 93971

== ENCOUNTER 2020-02-07 21:37 | Outpatient (REF) | payer MEDICARE, SELFPAY ==
[2020-02-07 22:18] LABS: ALT 41 U/L (14-59); AST 30 U/L (15-37); Albumin 3.8 g/dL (3.4-5.0); Alkaline Phosphatase 149 U/L (46-116); Anion Gap 9.3 mmol/L (3-11); BUN 32 mg/dL (7-18); Bilirubin, Total 0.2 mg/dL (0.2-1.0); CO2 27.7 mmol/L (21.0-32.0); CREATININE 1.85 mg/dL (0.55-1.02); Calcium 9.4 mg/dL (8.5-10.1); Chloride 103 mmol/L (98-107); Estimated GFR 27.45 (mL/min/1.73m2); Glucose 88 mg/dL (74-106); Potassium 4.1 mmol/L (3.5-5.1); Sodium 140 mmol/L (136-145); Total Protein 7.2 g/dL (6.4-8.2)
== END 2020-02-07 21:57 ==
LOC: LBN 21:37
PROVIDERS: PCP Family Medicine; Visit Provider Family Medicine
DX: E87.5 Hyperkalemia (principal); N28.9 Disorder of kidney and ureter, unspecified
CPT/HCPCS: 80053

== ENCOUNTER 2020-04-09 02:56 | Outpatient (CLI) | payer MEDICARE, SELFPAY ==
[2020-04-10 10:15] LABS: CA 125 22 U/mL (<30)
== END 2020-04-09 02:57 | disposition home or self-care (01) ==
LOC: LBO 02:56
PROVIDERS: PCP Family Medicine; Visit Provider Obstetrics & Gynecology Gynecologic Oncology
DX: C56.1 Malignant neoplasm of right ovary (principal)
CPT/HCPCS: 36415; 86304

== ENCOUNTER 2020-04-23 03:15 | Outpatient (RCR) | payer MEDICARE, SELFPAY ==
[2020-04-23] MEDS: Normal Saline Flush 10 ML SYR IVP (10:57)
[2020-04-23] MEDS: Heparin 500 UNITS/5 ML SYRINGE IV (10:57)
[2020-04-23 11:09] LABS: Abs Immature Grans 0.03 10^3/uL (0.0-0.06); Absolute Basophil Count 0.06 10^3/uL (0.0-0.2); Absolute Eosinophil Count 0.45 10^3/uL (0.0-0.7); Absolute Lymphocyte Count 1.76 10^3/uL (1.2-3.4); Absolute Monocyte Count 0.79 10^3/uL (0.1-0.8); Absolute Neutrophil Count 4.39 10^3/uL (1.2-6.7); Basophils % 0.8; HCT 36.5 % (36.0-46.0); HGB 11.8 g/dL (11.2-15.7); Immature Grans % 0.4; Lymphocytes % 23.5; MCH 28.4 pg (27.0-33.0); MCHC 32.3 % (32.0-36.0); MCV 87.7 fL (80-95); MPV 9.2 fL (8.0-11.0); Monocytes % 10.6; Neutrophils % 58.7; Nucleated RBC 0 %; Platelet Count 396 10^3/uL (130-400); RBC 4.16 10^6/uL (3.93-5.22); RDW 13.9 % (11.7-14.6); RDW-SD 44.7 fL; WBC 7.48 10^3/uL (4.4-10.8)
[2020-04-23 11:22] LABS: Albumin 3.8 g/dL (3.4-5.0); Alkaline Phosphatase 161 U/L (46-116); BUN 33 mg/dL (7-18); Bilirubin, Total 0.4 mg/dL (0.2-1.0); CO2 28.1 mmol/L (21.0-32.0); CREATININE 1.7 mg/dL (0.55-1.02); Calcium 9.7 mg/dL (8.5-10.1); Chloride 99 mmol/L (98-107); Estimated GFR 30.26 (mL/min/1.73m2); Glucose 131 mg/dL (74-106); PHOSPHORUS 3.6 mg/dL (2.6-4.7); Sodium 139 mmol/L (136-145); Total Protein 8.2 g/dL (6.4-8.2)
[2020-04-23 11:23] LABS: ALT 29 U/L (14-59); AST 24 U/L (15-37); Anion Gap 11.9 mmol/L (3-11)
[2020-04-23 11:26] LABS: Hemoglobin A1C 8.1 % (<5.7)
[2020-04-23 11:58] LABS: COMMENT (LAB VIEW ONLY) 213.89 mg/dL; Microalb ug/mg Crea 6.6 ug/mg Cr
[2020-04-24 09:06] LABS: Parathyroid Hormone,Intact 98 pg/mL (19-88)
== END 2020-05-20 23:59 | disposition home or self-care (01) ==
LOC: INF 03:15
PROVIDERS: Internal Medicine Nephrology; Obstetrics & Gynecology Gynecologic Oncology; PCP Family Medicine; Visit Provider Family Medicine
DX: C56.9 Malignant neoplasm of unspecified ovary (principal); E11.9 Type 2 diabetes mellitus without complications; Z45.2 Encounter for adjustment and management of vascular access device
CPT/HCPCS: 36591; 80053; 82043; 82570; 83036; 83970; 84100; 84550; 85025

== ENCOUNTER 2020-06-16 02:43 | Outpatient (RCR) | payer MEDICARE, SELFPAY ==
[2020-06-16] MEDS: Heparin 500 UNITS/5 ML SYRINGE IV (11:03)
[2020-06-16] MEDS: Normal Saline Flush 10 ML SYR IVP (11:03)
[2020-06-16 11:16] LABS: Abs Immature Grans 0.02 10^3/uL (0.0-0.06); Absolute Basophil Count 0.05 10^3/uL (0.0-0.2); Absolute Eosinophil Count 0.32 10^3/uL (0.0-0.7); Absolute Lymphocyte Count 1.51 10^3/uL (1.2-3.4); Absolute Monocyte Count 0.65 10^3/uL (0.1-0.8); Basophils % 0.7; Eosinophils % 4.3; HCT 34.8 % (36.0-46.0); HGB 10.9 g/dL (11.2-15.7); Immature Grans % 0.3; Lymphocytes % 20.3; MCHC 31.3 % (32.0-36.0); MCV 86.1 fL (80-95); MPV 8.9 fL (8.0-11.0); Monocytes % 8.7; Neutrophils % 65.7; Nucleated RBC 0 %; Platelet Count 429 10^3/uL (130-400); RBC 4.04 10^6/uL (3.93-5.22); RDW 14.6 % (11.7-14.6); RDW-SD 45.9 fL; WBC 7.45 10^3/uL (4.4-10.8)
[2020-06-16 11:37] LABS: ALT 25 U/L (14-59); AST 22 U/L (15-37); Albumin 3.6 g/dL (3.4-5.0); Alkaline Phosphatase 145 U/L (46-116); Anion Gap 9.2 mmol/L (3-11); BUN 34 mg/dL (7-18); Bilirubin, Total 0.4 mg/dL (0.2-1.0); CO2 28.8 mmol/L (21.0-32.0); CREATININE 1.7 mg/dL (0.55-1.02); Calcium 9.9 mg/dL (8.5-10.1); Chloride 100 mmol/L (98-107); Estimated GFR 30.16 (mL/min/1.73m2); Glucose 163 mg/dL (74-106); Magnesium 1.9 mg/dL (1.8-2.4); Potassium 4.3 mmol/L (3.5-5.1); Sodium 138 mmol/L (136-145)
[2020-06-17 13:01] LABS: CA 125 45 U/mL (<30)
== END 2020-06-19 23:59 | disposition home or self-care (01) ==
LOC: INF 02:43
PROVIDERS: PCP Family Medicine; Visit Provider Obstetrics & Gynecology Gynecologic Oncology
DX: C56.9 Malignant neoplasm of unspecified ovary (principal); Z45.2 Encounter for adjustment and management of vascular access device
CPT/HCPCS: 36591; 80053; 86304; 83735; 85025

== ENCOUNTER 2020-08-04 20:28 | Outpatient (REF) | payer MEDICARE, SELFPAY ==
[2020-08-06 14:04] LABS: COVID-19 RT-PCR UVMMC Result Negative (Negative)
== END 2020-08-04 20:29 | disposition home or self-care (01) ==
LOC: NCHCN 20:28
PROVIDERS: PCP Family Medicine; Visit Provider Physician Assistant
DX: Z20.822 Contact with and (suspected) exposure to COVID-19 (principal); R05 Cough
CPT/HCPCS: U0003; U0005

== ENCOUNTER 2020-09-15 02:43 | Outpatient (CLI) | payer MEDICARE, SELFPAY ==
--- NOTE | 2020-09-15 08:30 | DI.CT_ITS ---
Exam(s) CT CHEST/ABD/PEL WO EXAM: CT CHEST/ABD/PEL WO CLINICAL HISTORY: h/o of ovarian cancer,c56.9 TECHNIQUE: Imaging Protocol: Axial computed tomography images with coronal and sagittal reformatted images were created and reviewed CONTRAST MATERIAL: Imaging Protocol: Axial computed tomography images with coronal and sagittal refo rmatted images were created and reviewed. FINDINGS: The examination is limited due to patient motion artifact. CHEST: Tracheobronchial tree: Patent where visualized. Mediastinum and Kimberly: No dominant adenopathy or fluid collection. Pulmonary parenchyma: No consolidation or dominant measurable mass. Mild centrilobular emphysema. Pa renchymal scarring is present. Pleura: No effusion or pneumothorax. Heart: Mild cardiomegaly. Mild coronary artery calcification. Aorta: Thoracic aorta non-dilated. Lymph nodes: Within normal limits. Bones:Left shoulder prosthesis. Degenerative changes in the thoracic spine. Lower cervical and uppe r thoracic spine surgery. No suspicious lytic or sclerotic lesions. Tubes, Catheters, and Lines: The tip of the patient's indwelling central venous catheter is in good p osition in the superior vena cava. Soft tissues: Unremarkable. ABDOMEN: The lack of IV contrast does limit evaluation of the abdominal and pelvic organs. Liver: The liver has a nodular contour. In light of the patient's history findings are suspicious fo r deposition of peritoneal metastasis. No measurable mass. Gallbladder and Biliary Tract: The gallbladder is contracted. No biliary ductal dilatation. Pancreas: Normal density, no abnormal calcifications or inflammatory process. Spleen: The spleen is ill-defined on this noncontrast examination. This appears to be due to the bul ky peritoneal metastatic disease. Adrenals: No masses seen. Kidneys: Normal size, contour and axis. No radiodense stones or obstructive uropathy. No masses seen. Abdominal Aorta: Abdominal portion non-dilated. Mild atherosclerosis. Bowel: No obstruction or bowel wall thickening. No evidence of appendicitis. Peritoneal Cavity: Since the prior examination there has been marked progression of the abdominal pel corina omental metastatic disease. There is a large mass in the upper abdomen along the lesser curvatur e of the stomach measuring at least 10 cm craniocaudad by 6.8 cm AP x 8.1 cm transverse. It displace s the stomach anteriorly. Numerous metastatic deposits are seen on and around the liver and spleen. Metastatic deposits are seen along the anterior abdominal wall and interspersed within the mesentery . Mild abdominal and moderate pelvic ascites is present. Lymph Nodes: There are masses seen scattered within the mesentery presumably representing metastatic deposits. Adenopathy cannot be excluded. Bones: Multilevel degenerative changes are seen throughout the spine. No suspicious lytic or sclerot ic lesions are seen in the lumbar spine. Soft Tissues: Unremarkable. PELVIS: Bladder: Symmetric distention, no gross wall thickening. Reproductive Organs: Status post hysterectomy. Lymph Nodes: Within normal limits. Bones: Within normal limits. IMPRESSION: 1. Findings of progression of metastatic disease in the abdomen and pelvis with extensive peritoneal metastatic deposits and a soft tissue mass in the upper abdomen. 2. Mild abdominal ascites and moderate pelvic ascites. 3. No evidence of thoracic metastatic disease. RADIATION DOSE DELIVERED: 1,437.38mGy.cm Total DLP 1,437.38mGy.cm Total DLP DATA REPOSITORY: All CT scans at this facility are submitted to the National Radiology Data Registry (NRDR) Dose Index Registry (DIR) with the [employer] ([employer]). RADIATION OPTIMIZATION: All CT scans at this facility use at least one of these dose optimization te chniques: automated exposure control; mA and/or kV adjustment per patient size (includes targeted exa ms where dose is matched to clinical indication); or iterative reconstruction.
[2020-09-15] MEDS: Breeza Beverage 473 ML BTL PO (13:44)
[2020-09-15] MEDS: Omnipaque 350 MG/ML 50 ML BTL IJ (13:44)
== END 2020-09-15 03:03 ==
PROVIDERS: PCP Family Medicine; Visit Provider Family Medicine
DX: C79.89 Secondary malignant neoplasm of other specified sites (principal); R18.8 Other ascites; Z85.43 Personal history of malignant neoplasm of ovary
CPT/HCPCS: 71250; 74176; Q9967

== ENCOUNTER 2020-09-17 03:53 | Outpatient (RCR) | payer MEDICARE, SELFPAY ==
[2020-08-27] MEDS: Heparin 500 UNITS/5 ML SYRINGE IV (14:23)
[2020-08-27] MEDS: Normal Saline Flush 10 ML SYR IVP (14:23)
[2020-08-27 14:24] LABS: Abs Immature Grans 0.04 10^3/uL (0.0-0.06); Absolute Basophil Count 0.08 10^3/uL (0.0-0.2); Absolute Eosinophil Count 0.41 10^3/uL (0.0-0.7); Absolute Lymphocyte Count 1.78 10^3/uL (1.2-3.4); Absolute Monocyte Count 0.85 10^3/uL (0.1-0.8); HCT 32.9 % (36.0-46.0); HGB 10.1 g/dL (11.2-15.7); Immature Grans % 0.5; Lymphocytes % 21.8; MCH 25.3 pg (27.0-33.0); MCHC 30.7 % (32.0-36.0); MCV 82.5 fL (80-95); MPV 8.7 fL (8.0-11.0); Monocytes % 10.4; Neutrophils % 61.3; Nucleated RBC 0 %; Platelet Count 687 10^3/uL (130-400); RBC 3.99 10^6/uL (3.93-5.22); RDW 17.6 % (11.7-14.6); RDW-SD 51.7 fL; WBC 8.16 10^3/uL (4.4-10.8)
[2020-08-27 14:36] LABS: ALT 27 U/L (14-59); AST 28 U/L (15-37); Albumin 3.3 g/dL (3.4-5.0); Alkaline Phosphatase 148 U/L (46-116); Anion Gap 13.2 mmol/L (3-11); BUN 27 mg/dL (7-18); Bilirubin, Total 0.3 mg/dL (0.2-1.0); CO2 23.8 mmol/L (21.0-32.0); CREATININE 1.8 mg/dL (0.55-1.02); Calcium 9.7 mg/dL (8.5-10.1); Chloride 102 mmol/L (98-107); Estimated GFR 28.24 (mL/min/1.73m2); Glucose 116 mg/dL (74-106); Magnesium 1.5 mg/dL (1.8-2.4); Potassium 4.6 mmol/L (3.5-5.1); Sodium 139 mmol/L (136-145)
[2020-08-28 10:13] LABS: CA 125 76 U/mL (<30)
[2020-09-10] MEDS: Normal Saline Flush 10 ML SYR IVP (12:57)
[2020-09-10] MEDS: Heparin 500 UNITS/5 ML SYRINGE IV (12:57)
[2020-09-10 13:27] LABS: Abs Immature Grans 0.03 10^3/uL (0.0-0.06); Absolute Basophil Count 0.02 10^3/uL (0.0-0.2); Absolute Eosinophil Count 0.15 10^3/uL (0.0-0.7); Absolute Lymphocyte Count 0.85 10^3/uL (1.2-3.4); Absolute Monocyte Count 0.13 10^3/uL (0.1-0.8); Absolute Neutrophil Count 5.63 10^3/uL (1.2-6.7); Basophils % 0.3; Eosinophils % 2.2; HCT 29.9 % (36.0-46.0); HGB 9.3 g/dL (11.2-15.7); Immature Grans % 0.4; Lymphocytes % 12.5; MCH 25.1 pg (27.0-33.0); MCHC 31.1 % (32.0-36.0); MCV 80.8 fL (80-95); MPV 9.4 fL (8.0-11.0); Monocytes % 1.9; Neutrophils % 82.7; Nucleated RBC 0 %; Platelet Count 372 10^3/uL (130-400); RDW 18.3 % (11.7-14.6); RDW-SD 52.5 fL; WBC 6.81 10^3/uL (4.4-10.8)
[2020-09-10 13:28] LABS: ALT 74 U/L (14-59); AST 62 U/L (15-37); Albumin 3.3 g/dL (3.4-5.0); Alkaline Phosphatase 123 U/L (46-116); Anion Gap 11.9 mmol/L (3-11); BUN 39 mg/dL (7-18); Bilirubin, Total 0.4 mg/dL (0.2-1.0); CO2 28.1 mmol/L (21.0-32.0); Calcium 10.2 mg/dL (8.5-10.1); Chloride 98 mmol/L (98-107); Estimated GFR 25.01 (mL/min/1.73m2); Glucose 97 mg/dL (74-106); Magnesium 1.8 mg/dL (1.8-2.4); Potassium 4.5 mmol/L (3.5-5.1); Sodium 138 mmol/L (136-145)
[2020-09-17] MEDS: Heparin 500 UNITS/5 ML SYRINGE IV (13:25)
[2020-09-17] MEDS: Normal Saline Flush 10 ML SYR IVP (13:25)
[2020-09-17 13:33] LABS: Abs Immature Grans 0.06 10^3/uL (0.0-0.06); Absolute Basophil Count 0.02 10^3/uL (0.0-0.2); Absolute Eosinophil Count 0.32 10^3/uL (0.0-0.7); Absolute Lymphocyte Count 1.56 10^3/uL (1.2-3.4); Absolute Monocyte Count 1.11 10^3/uL (0.1-0.8); Basophils % 0.3; Eosinophils % 4.3; HCT 29.7 % (36.0-46.0); HGB 9.1 g/dL (11.2-15.7); Immature Grans % 0.8; Lymphocytes % 21.2; MCH 25.3 pg (27.0-33.0); MCHC 30.6 % (32.0-36.0); MCV 82.7 fL (80-95); Monocytes % 15.1; Neutrophils % 58.3; Nucleated RBC 0 %; Platelet Count 410 10^3/uL (130-400); RBC 3.59 10^6/uL (3.93-5.22); RDW 19.9 % (11.7-14.6); RDW-SD 54.8 fL; WBC 7.37 10^3/uL (4.4-10.8)
[2020-09-17 13:48] LABS: ALT 53 U/L (14-59); AST 44 U/L (15-37); Albumin 3.1 g/dL (3.4-5.0); Alkaline Phosphatase 149 U/L (46-116); Anion Gap 11.1 mmol/L (3-11); BUN 32 mg/dL (7-18); Bilirubin, Total 0.3 mg/dL (0.2-1.0); CO2 26.9 mmol/L (21.0-32.0); Chloride 101 mmol/L (98-107); Estimated GFR 25.01 (mL/min/1.73m2); Glucose 119 mg/dL (74-106); Magnesium 1.8 mg/dL (1.8-2.4); Potassium 4.7 mmol/L (3.5-5.1); Sodium 139 mmol/L (136-145); Total Protein 7.4 g/dL (6.4-8.2)
[2020-09-18 10:52] LABS: CA 125 38 U/mL (<30)
== END 2020-09-19 23:59 | disposition home or self-care (01) ==
LOC: INF 03:53
PROVIDERS: PCP Family Medicine; Visit Provider Obstetrics & Gynecology Gynecologic Oncology
DX: C56.9 Malignant neoplasm of unspecified ovary (principal); Z45.2 Encounter for adjustment and management of vascular access device
CPT/HCPCS: 36591; 80053; 86304; 83735; 85025

== ENCOUNTER 2020-10-16 03:51 | Outpatient (RCR) | payer MEDICARE, SELFPAY ==
[2020-10-16] MEDS: Normal Saline Flush 10 ML SYR 30 ML IVP (14:44)
[2020-10-16] MEDS: Heparin 500 UNITS/5 ML SYRINGE (14:45)
[2020-10-16 15:31] LABS: Abs Immature Grans 0.04 10^3/uL (0.0-0.06); Absolute Basophil Count 0.09 10^3/uL (0.0-0.2); Absolute Eosinophil Count 0.38 10^3/uL (0.0-0.7); Absolute Lymphocyte Count 1.05 10^3/uL (1.2-3.4); Absolute Monocyte Count 1.29 10^3/uL (0.1-0.8); Absolute Neutrophil Count 5.95 10^3/uL (1.2-6.7); Eosinophils % 4.3; HCT 28.5 % (36.0-46.0); HGB 8.7 g/dL (11.2-15.7); Immature Grans % 0.5; Lymphocytes % 11.9; MCHC 30.5 % (32.0-36.0); MCV 85.3 fL (80-95); MPV 9.2 fL (8.0-11.0); Monocytes % 14.7; Neutrophils % 67.6; Nucleated RBC 0 %; RBC 3.34 10^6/uL (3.93-5.22); RDW 23.8 % (11.7-14.6); RDW-SD 71.2 fL
[2020-10-16 15:44] LABS: ALT 24 U/L (14-59); AST 40 U/L (15-37); Albumin 2.7 g/dL (3.4-5.0); Alkaline Phosphatase 136 U/L (46-116); Anion Gap 10.3 mmol/L (3-11); BUN 56 mg/dL (7-18); Bilirubin, Total 0.2 mg/dL (0.2-1.0); CO2 22.7 mmol/L (21.0-32.0); CREATININE 2.6 mg/dL (0.55-1.02); Calcium 10.5 mg/dL (8.5-10.1); Chloride 103 mmol/L (98-107); Estimated GFR 18.47 (mL/min/1.73m2); Glucose 138 mg/dL (74-106); PHOSPHORUS 4.8 mg/dL (2.6-4.7); Potassium 5.1 mmol/L (3.5-5.1); Sodium 136 mmol/L (136-145); Total Protein 7.3 g/dL (6.4-8.2); Uric Acid 11.2 mg/dL (2.6-6.0)
[2020-10-16 16:07] LABS: Platelet Count 897 10^3/uL (130-400)
[2020-10-16 16:08] LABS: Anisocytosis 3+; Diff Comment RBC Morph Reviewed; Macrocytosis 1+; Poikilocytes 1+; Polychromasia Present
[2020-10-19 10:01] LABS: CA 125 49 U/mL (<30)
[2020-10-19 10:10] LABS: Parathyroid Hormone,Intact <6 pg/mL (19-88)
== END 2020-10-20 23:59 | disposition home or self-care (01) ==
LOC: INF 03:51
PROVIDERS: PCP Family Medicine; Visit Provider Obstetrics & Gynecology Gynecologic Oncology
DX: C56.9 Malignant neoplasm of unspecified ovary (principal); N18.30 Chronic kidney disease, stage 3 unspecified; E11.9 Type 2 diabetes mellitus without complications; Z79.4 Long term (current) use of insulin; I10 Essential (primary) hypertension; I15.8 Other secondary hypertension; Z45.1 Encounter for adjustment and management of infusion pump
CPT/HCPCS: 36591; 80053; 86304; 83970; 84100; 84550; 85025

== ENCOUNTER 2020-11-13 05:16 | Outpatient (RCR) | payer MEDICARE, SELFPAY ==
[2020-10-30] MEDS: Heparin 500 UNITS/5 ML SYRINGE (13:59)
[2020-10-30] MEDS: Normal Saline Flush 10 ML SYR IVP (13:59)
[2020-10-30 14:41] LABS: Abs Immature Grans 0.04 10^3/uL (0.0-0.06); Absolute Basophil Count 0.11 10^3/uL (0.0-0.2); Absolute Eosinophil Count 0.31 10^3/uL (0.0-0.7); Absolute Lymphocyte Count 1.32 10^3/uL (1.2-3.4); Absolute Monocyte Count 1.28 10^3/uL (0.1-0.8); Absolute Neutrophil Count 5.31 10^3/uL (1.2-6.7); Basophils % 1.3; Eosinophils % 3.7; HCT 29.3 % (36.0-46.0); Immature Grans % 0.5; Lymphocytes % 15.8; MCH 25.8 pg (27.0-33.0); MCHC 30.7 % (32.0-36.0); MPV 9.4 fL (8.0-11.0); Monocytes % 15.3; Neutrophils % 63.4; Nucleated RBC 0 %; RBC 3.49 10^6/uL (3.93-5.22); RDW 22.1 % (11.7-14.6); RDW-SD 66.1 fL; WBC 8.37 10^3/uL (4.4-10.8)
[2020-10-30 14:49] LABS: Magnesium 1.5 mg/dL (1.8-2.4)
[2020-10-30 14:55] LABS: ALT 20 U/L (14-59); AST 40 U/L (15-37); Albumin 2.7 g/dL (3.4-5.0); Alkaline Phosphatase 125 U/L (46-116); Anion Gap 10.2 mmol/L (3-11); BUN 41 mg/dL (7-18); Bilirubin, Total 0.2 mg/dL (0.2-1.0); CO2 24.8 mmol/L (21.0-32.0); CREATININE 2.1 mg/dL (0.55-1.02); Calcium 8.9 mg/dL (8.5-10.1); Chloride 100 mmol/L (98-107); Estimated GFR 23.64 (mL/min/1.73m2); Glucose 161 mg/dL (74-106); Potassium 4.1 mmol/L (3.5-5.1); Sodium 135 mmol/L (136-145); Total Protein 7.2 g/dL (6.4-8.2)
[2020-10-30 15:21] LABS: Diff Comment Diff Reviewed; Platelet Count 568 10^3/uL (130-400)
[2020-10-30 15:22] LABS: Anisocytosis 2+; Hypochromasia 2+; Polychromasia Present
[2020-10-30 15:23] LABS: Poikilocytes 1+
[2020-11-02 11:26] LABS: CA 125 41 U/mL (<30)
[2020-11-06] MEDS: Normal Saline Flush 10 ML SYR IVP (12:41)
[2020-11-06] MEDS: Heparin 500 UNITS/5 ML SYRINGE IV (12:41)
[2020-11-06 13:01] LABS: Abs Immature Grans 0.03 10^3/uL (0.0-0.06); Absolute Basophil Count 0.08 10^3/uL (0.0-0.2); Absolute Lymphocyte Count 0.58 10^3/uL (1.2-3.4); Absolute Monocyte Count 0.11 10^3/uL (0.1-0.8); Eosinophils % 3.7; HCT 28.4 % (36.0-46.0); HGB 8.6 g/dL (11.2-15.7); Immature Grans % 0.4; Lymphocytes % 7.2; MCH 25.7 pg (27.0-33.0); MCHC 30.3 % (32.0-36.0); MPV 8.9 fL (8.0-11.0); Monocytes % 1.4; Neutrophils % 86.3; Nucleated RBC 0 %; Platelet Count 628 10^3/uL (130-400); RBC 3.34 10^6/uL (3.93-5.22); RDW 20.9 % (11.7-14.6); RDW-SD 64.8 fL
[2020-11-06 13:13] LABS: Anisocytosis 1+; Diff Comment Diff Reviewed; Hypochromasia 1+; Microcytosis 1+
[2020-11-06 13:23] LABS: AST 83 U/L (15-37); Albumin 2.6 g/dL (3.4-5.0); Alkaline Phosphatase 112 U/L (46-116); Anion Gap 10.2 mmol/L (3-11); BUN 38 mg/dL (7-18); Bilirubin, Total 0.2 mg/dL (0.2-1.0); CO2 25.8 mmol/L (21.0-32.0); CREATININE 2.2 mg/dL (0.55-1.02); Calcium 9.1 mg/dL (8.5-10.1); Chloride 101 mmol/L (98-107); Glucose 152 mg/dL (74-106); Potassium 4.5 mmol/L (3.5-5.1); Sodium 137 mmol/L (136-145); Total Protein 6.9 g/dL (6.4-8.2)
[2020-11-06 13:35] LABS: ALT 60 U/L (14-59)
[2020-11-06 13:46] LABS: Magnesium 1.7 mg/dL (1.8-2.4)
[2020-11-13] MEDS: Heparin 500 UNITS/5 ML SYRINGE IV (14:04)
[2020-11-13] MEDS: Normal Saline Flush 10 ML SYR IVP (14:05)
[2020-11-13 14:16] LABS: Abs Immature Grans 0.07 10^3/uL (0.0-0.06); Absolute Basophil Count 0.04 10^3/uL (0.0-0.2); Absolute Eosinophil Count 0.25 10^3/uL (0.0-0.7); Absolute Lymphocyte Count 1.28 10^3/uL (1.2-3.4); Absolute Monocyte Count 1.32 10^3/uL (0.1-0.8); Basophils % 0.5; Eosinophils % 2.9; HCT 27.9 % (36.0-46.0); HGB 8.7 g/dL (11.2-15.7); Immature Grans % 0.8; MCH 26.4 pg (27.0-33.0); MCHC 31.2 % (32.0-36.0); MCV 84.8 fL (80-95); MPV 9.3 fL (8.0-11.0); Monocytes % 15.4; Neutrophils % 65.4; Nucleated RBC 1 %; Platelet Count 489 10^3/uL (130-400); RBC 3.29 10^6/uL (3.93-5.22); RDW 21.7 % (11.7-14.6); RDW-SD 63.9 fL; WBC 8.56 10^3/uL (4.4-10.8)
[2020-11-13 14:28] LABS: Anisocytosis 2+; Diff Comment Diff Reviewed; Hypochromasia 1+
[2020-11-13 14:29] LABS: ALT 42 U/L (14-59); AST 55 U/L (15-37); Albumin 2.6 g/dL (3.4-5.0); Alkaline Phosphatase 157 U/L (46-116); Anion Gap 7.7 mmol/L (3-11); BUN 40 mg/dL (7-18); Bilirubin, Total 0.3 mg/dL (0.2-1.0); CO2 30.3 mmol/L (21.0-32.0); Calcium 9.1 mg/dL (8.5-10.1); Chloride 100 mmol/L (98-107); Estimated GFR 25.01 (mL/min/1.73m2); Glucose 106 mg/dL (74-106); Magnesium 1.7 mg/dL (1.8-2.4); Potassium 4.2 mmol/L (3.5-5.1); Sodium 138 mmol/L (136-145); Total Protein 6.9 g/dL (6.4-8.2)
== END 2020-11-19 23:59 | disposition home or self-care (01) ==
LOC: INF 05:16
PROVIDERS: PCP Family Medicine; Visit Provider Obstetrics & Gynecology Gynecologic Oncology
DX: C56.9 Malignant neoplasm of unspecified ovary (principal); Z45.2 Encounter for adjustment and management of vascular access device
CPT/HCPCS: 36591; 80053; 86304; 83735; 84100; 85025

== ENCOUNTER 2020-12-21 21:17 | Outpatient (REF) | payer MEDICARE, SELFPAY ==
[2020-12-23 12:48] LABS: COVID-19 RT-PCR UVMMC Result Negative (Negative)
== END 2020-12-21 21:18 | disposition home or self-care (01) ==
LOC: LBN 21:17
PROVIDERS: PCP Family Medicine; Visit Provider Family Medicine
DX: Z11.52 Encounter for screening for COVID-19 (principal)
CPT/HCPCS: U0003; U0005